=== PATIENT | female | born 1990 | race Two or more races ===

== ENCOUNTER → 2017-06-03 | Outpatient (CLI) | payer SELFPAY ==
--- NOTE | 2017-06-03 19:22 | RADIOLOGY REPORT (SQ) ---
EXAM DESCRIPTION: U/S OB 14+ TRNABD 1GES W/O DOP COMPLETED DATE/TIME: 06/03/2017 5:10 pm REASON FOR STUDY: ENCOUNTER FOR SUPERVISON OF OTHER NORMAL , SECOND TRIMESTER Z34.82 ENCOU NTER FOR SUPRVSN OF NORMAL , SECOND TRI COMPARISON: None. TECHNIQUE: Static and Dynamic grayscale imaging performed of gravid uterus using transabdominal appr oach. Additional selected color Doppler and spectral images recorded. All stored on PACS. LIMITATIONS: None. FINDINGS: EGA: 21 weeks 0 days JACQUELINE: 10/14/2017 EFW: 385 g +/-50 7 g PERCENTILE: Not recorded LVP: 6.1 cm PLACENTA: Posterior PRESENTATION: Vertex ANATOMY: HEART RATE: 143 beats per minute. FOUR CHAMBER HEART: Visualized. THREE VESSEL CORD: Yes. CORD INSERTION: Visualized. KIDNEYS AND BLADDER: Visualized. Appear normal. STOMACH: Visualized. Appears normal. SPINE: Spine not well visualized due to movement. But appears unremarkable BRAIN AND LATERAL VENTRICLES: Visualized. Appear normal. OTHER: No other significant finding. MATERNAL ADNEXA: Maternal ovaries not visualized. CERVICAL LENGTH: Not applicable. Greater than 20 weeks. Need transvaginal study if indicated. OTHER: No other significant finding. IMPRESSION: LIVING INTRAUTERINE . ESTIMATED GESTATIONAL AGE 21 weeks 0 days NO VISUALIZED ANOMALIES. Trimester of : Second trimester - 13 weeks 1 day to 27 weeks 6 days. TECHNICAL DOCUMENTATION: JOB ID: [id number] [employer]- All Rights Reserved
== END ==
LOC: RAD 15:19
PROVIDERS: ATTEND Nurse Practitioner Women's Health
DX: Z34.82 Encounter for supervision of other normal pregnancy, second trimester (principal)
CPT/HCPCS: 76805

== ENCOUNTER → 2017-07-14 | Outpatient (CLI) | payer SELFPAY ==
--- NOTE | 2017-07-15 10:16 | RADIOLOGY REPORT (SQ) ---
EXAM DESCRIPTION: U/S OB 14+ TRNABD 1GES W/O DOP COMPLETED DATE/TIME: 07/14/2017 4:41 pm REASON FOR STUDY: 2ND TRIMESTER ANATOMY SCAN Z34.82 ENCOUNTER FOR SUPRVSN OF NORMAL , SECO ND TRI COMPARISON: 06/03/2017 TECHNIQUE: Limited TRANSABDOMINAL AND ENDOVAGINAL grayscale ultrasound for evaluation of specific re quested obstetrical parameters. LIMITATIONS: None. FINDINGS: CERVICAL LENGTH: 4.8 cm Closed. RADHA: Largest pocket 6.5 cm cm. FHR: 152 beats per minute. PRESENTATION: Breech. OTHER: Imaging of the spine is unremarkable. IMPRESSION: LIMITED OBSTETRICAL ULTRASOUND WITH MEASURED PARAMETERS DELINEATED ABOVE. Trimester of : Third trimester - 28 weeks to delivery. TECHNICAL DOCUMENTATION: JOB ID: [id number] [employer]- All Rights Reserved
== END ==
LOC: WI 15:46
PROVIDERS: ATTEND Nurse Practitioner Women's Health
DX: Z34.82 Encounter for supervision of other normal pregnancy, second trimester (principal)
CPT/HCPCS: 76805

== ENCOUNTER 2017-08-04 15:47 | Outpatient (CLI) | payer MEDICAID ==
[2017-08-04 16:28] LABS: ABSOLUTE EOSINOPHILS # (AUTO) 0.1 10^3/uL (0.0-0.6); ABSOLUTE LYMPHOCYTES (AUTO) 1.7 10^3/uL (0.5-4.7); ABSOLUTE MONOCYTES (AUTO) 0.8 10^3/uL (0.1-1.4); ABSOLUTE NEUT (AUTO) 7.4 10^3/uL (1.7-8.2); BASOPHILS % (AUTO) 0.4 % (0-2); EOSINOPHILS % (AUTO) 1.5 % (0-6); HEMATOCRIT 35.5 % (36.0-47.0); HEMOGLOBIN 12.9 g/dL (12.0-15.5); HGB HCT DIFFERENCE 3.2; LYMPHOCYTES % (AUTO) 16.9 % (13-45); MEAN CORPUSCULAR HEMOGLOBIN 33.1 pg (27.0-33.4); MEAN CORPUSCULAR HGB CONC 36.3 g/dL (32.0-36.0); MEAN CORPUSCULAR VOLUME 91 fl (80-97); MONOCYTES % (AUTO) 7.7 % (3-13); RED BLOOD COUNT 3.89 10^6/uL (3.72-5.28); RED CELL DISTRIBUTION WIDTH 13.3 % (11.5-14.0); SEGMENTED NEUTROPHILS % (AUTO) 73.5 % (42-78)
[2017-08-04 16:35] LABS: APPEARANCE,URINE SLIGHTLY-CLOUDY; BILIRUBIN,URINE NEGATIVE (NEGATIVE); GLUCOSE, URINE NEGATIVE (NEGATIVE); KETONES,URINE NEGATIVE (NEGATIVE); LEUKOCYTE ESTERASE,URINE NEGATIVE (NEGATIVE); NITRITE,URINE NEGATIVE (NEGATIVE); PROTEIN,URINE NEGATIVE (NEGATIVE); URINE SPECIFIC GRAVITY 1.005; UROBILINOGEN,URINE NEGATIVE mg/dL (<2.0)
[2017-08-04 17:21] LABS: URINE BARBITURATES SCREEN NEGATIVE; URINE METHADONE SCREEN NEGATIVE; URINE OPIATES LOW NEGATIVE; URINE PHENCYCLIDINE SCREEN NEGATIVE
== END 2017-08-04 16:51 | disposition home or self-care (01) ==
LOC: LC 15:47
PROVIDERS: ATTEND Obstetrics & Gynecology
PROC: 4A1HXCZ Monitoring of Products of Conception, Cardiac Rate, External Approach (ICD-10-PCS; principal; 2017-08-04)
DX: O47.03 False labor before 37 completed weeks of gestation, third trimester (principal); Z3A.29 29 weeks gestation of pregnancy
CPT/HCPCS: 36415; 80307; 81001; 85025

== ENCOUNTER 2017-10-05 15:50 | Outpatient (CLI) | payer MEDICAID | END 2017-10-05 16:39 | disposition home or self-care (01) | LOC: LC 15:50 | PROVIDERS: ATTEND Advanced Practice Midwife | DX: Z34.83 Encounter for supervision of other normal pregnancy, third trimester (principal); Z3A.37 37 weeks gestation of pregnancy | CPT/HCPCS: 59025 ==

== ENCOUNTER 2017-10-08 07:40 | Outpatient (CLI) | payer MEDICAID ==
[2017-10-08 08:16] LABS: APPEARANCE,URINE SLIGHTLY-CLOUDY; BILIRUBIN,URINE NEGATIVE (NEGATIVE); GLUCOSE, URINE NEGATIVE (NEGATIVE); KETONES,URINE NEGATIVE (NEGATIVE); LEUKOCYTE ESTERASE,URINE NEGATIVE (NEGATIVE); NITRITE,URINE NEGATIVE (NEGATIVE); PROTEIN,URINE 100 mg/dL (NEGATIVE); URINE SPECIFIC GRAVITY 1.015; UROBILINOGEN,URINE NEGATIVE mg/dL (<2.0)
[2017-10-08 08:33] LABS: URINE BARBITURATES SCREEN NEGATIVE; URINE METHADONE SCREEN NEGATIVE; URINE OPIATES LOW NEGATIVE; URINE PHENCYCLIDINE SCREEN NEGATIVE
--- NOTE | 2017-10-08 08:48 | Non Stress Test Report ---
Non Stress Test Datetime Report Generated by CPN: 10/08/2017 08:47 DEMOGRAPHIC EGA NST: 38.2 INDICATION Indication for Study: Other Indication for Study (NST) Other: labor check MONITORING Monitor Explained: Monitor Explained; Test Explained; Patient Verbalized Understanding Time on Monitor: 10/08/2017 07:52 Time off Monitor: 10/08/2017 08:41 NST Duration: 49 NST INTERVENTIONS NST Interventions: PO Hydration Physician Notified NST: Dr.Teixeira BABY A: [id number] BABY A Movement : Present Contraction Frequency : 1-5 FHR Baseline : 125 Accelerations : 15X15 Decelerations : None Variability : Moderate 6-25bpm NST Review: Meets Criteria for Reactive NST NST Review and Verified By : Medardo Bañuelos RN NST Results: Reactive NST REPORT Report Trigger: Send Report
[2017-10-08] MEDS ORDERED: RINGERS SOLUTION,LACTATED 1,000 ML IV ONE (23:25)
== END 2017-10-08 08:48 | disposition home or self-care (01) ==
LOC: LC 07:40
PROVIDERS: ATTEND Obstetrics & Gynecology
PROC: 4A1HXCZ Monitoring of Products of Conception, Cardiac Rate, External Approach (ICD-10-PCS; principal; 2017-10-08)
DX: O47.1 False labor at or after 37 completed weeks of gestation (principal); Z3A.38 38 weeks gestation of pregnancy
CPT/HCPCS: 59025; 80307; 81005

== ENCOUNTER 2017-10-08 22:41 | Inpatient (IN) | payer MEDICAID ==
[2017-10-08 23:53] LABS: ABSOLUTE MONOCYTES (AUTO) 0.6 10^3/uL (0.1-1.4); ABSOLUTE NEUT (AUTO) 9.6 10^3/uL (1.7-8.2); BASOPHILS % (AUTO) 0.2 % (0-2); EOSINOPHILS % (AUTO) 0.1 % (0-6); HEMOGLOBIN 12.6 g/dL (12.0-15.5); HGB HCT DIFFERENCE 1.8; LYMPHOCYTES % (AUTO) 9.2 % (13-45); MEAN CORPUSCULAR HEMOGLOBIN 30.4 pg (27.0-33.4); MEAN CORPUSCULAR HGB CONC 34.9 g/dL (32.0-36.0); MEAN CORPUSCULAR VOLUME 87 fl (80-97); MONOCYTES % (AUTO) 5.7 % (3-13); RED BLOOD COUNT 4.13 10^6/uL (3.72-5.28); RED CELL DISTRIBUTION WIDTH 14.4 % (11.5-14.0); SEGMENTED NEUTROPHILS % (AUTO) 84.8 % (42-78); WHITE BLOOD COUNT 11.3 10^3/uL (4.0-10.5)
[2017-10-09] MEDS ORDERED: FENTANYL CITRATE INJ/PF 100 MCG/2 ML AMPUL ONE (00:16)
[2017-10-09] MEDS ORDERED: PHENYLEPHRINE HCL INJ/PF 10 MG/1 ML SDV ONE (00:16)
[2017-10-09] MEDS ORDERED: EPHEDRINE SULFATE INJ 50 MG/1 ML AMPULE ONE (00:16)
[2017-10-09] MEDS ORDERED: FENTANYL/BUPIVACAINE/NS/PF 0 MCG/0 ML RTUINJ EPI ONE (00:17)
[2017-10-09] MEDS ORDERED: BUPIVACAINE HCL 0.25 % INJ/PF (2.5 MG/1 ML) 30 ML VIAL ONE ×2 (00:17→01:08)
[2017-10-09] MEDS ORDERED: MISOPROSTOL 0.2 MG TABLET ONE ×2 (00:18)
[2017-10-09] MEDS ORDERED: LIDOCAINE 1% INJ-PF (10 MG/ML) 30 ML SDV ONE (00:18)
[2017-10-09] MEDS ORDERED: OXYTOCIN/NORMAL SALINE 20 UNIT/1,000 ML RTUINJ ONE (00:19)
[2017-10-09] MEDS ORDERED: FENTANYL/BUPIVACAINE/NS/PF 200 MCG/100 ML RTUINJ EPI ONE (11:06)
[2017-10-09] MEDS ORDERED: MAGNESIUM HYDROXIDE SUSP 30 ML UDCUP PO PRN (12:35)
[2017-10-09] MEDS ORDERED: PROMETHAZINE HCL 25 MG TABLET PO PRN (12:35)
[2017-10-09] MEDS ORDERED: DIPH/PERTUSS(ACELL)/TETANUS VAC/PF 0.5 ML SYR (>=10YO) IM PRN (12:35)
[2017-10-09] MEDS ORDERED: OXYTOCIN/NORMAL SALINE 20 UNIT/1,000 ML RTUINJ IV PRN (12:35)
[2017-10-09] MEDS ORDERED: ZOLPIDEM TARTRATE 5 MG TABLET PO PRN (12:35)
[2017-10-09] MEDS ORDERED: DIPHENHYDRAMINE HCL 25 MG CAPSULE PO PRN (12:35)
[2017-10-09] MEDS ORDERED: PROMETHAZINE HCL INJ 25 MG/1 ML VIAL IV PRN (12:35)
[2017-10-09] MEDS ORDERED: BENZOCAINE/MENTHOL AEROSOL SPRAY 56 ML TOP PRN (12:35)
[2017-10-09] MEDS ORDERED: DIBUCAINE 1% OINTMENT 28 GM TP PRN (12:35)
[2017-10-09] MEDS ORDERED: GLYCERIN/WITCH HAZEL LEAF 1 EACH MED..PAD TP PRN (12:35)
[2017-10-09] MEDS ORDERED: PROMETHAZINE HCL 25 MG SUPP.RECT PR PRN (12:35)
[2017-10-09] MEDS ORDERED: ACETAMINOPHEN 650 MG SUPP.RECT PR PRN (12:35)
[2017-10-09] MEDS ORDERED: MEASLES,MUMPS&RUBELLA VACC/PF 0.5 ML VIAL SUBCUT PRN (12:35)
[2017-10-09] MEDS ORDERED: NA PHOS,M-B/NA PHOS,DI-BA (ADULT) 133 ML ENEMA PR PRN (12:35)
[2017-10-09] MEDS ORDERED: PSEUDOEPHEDRINE HCL 30 MG TABLET PO PRN (12:35)
[2017-10-09] MEDS ORDERED: ACETAMINOPHEN WITH CODEINE #3 TABLET PO PRN ×2 (12:35)
[2017-10-09] MEDS ORDERED: IBUPROFEN 800 MG TABLET ONE (12:55)
[2017-10-09] MEDS: IBUPROFEN 800 MG TABLET PO SCH ×2 (12:59→22:34)
--- NOTE | 2017-10-09 13:42 | Delivery Summary ---
Del Sum A-C Datetime Report Generated by CPN: 10/09/2017 13:42 DELIVERY PERSONNEL DELIVERY PERSONNEL: [id number] Delivery Doctor:: Janet Teixeira MD Labor and Delivery Nurse:: Marni Ellis RNhead well puller Nurse:: Isela Bañuelos RN Physical Sciences Professor/ORGAN PIPE FINISHER: Johanne Montesinosa, ST MATERNAL INFORMATION Delivery Anesthesia: Epidural Medications After Delivery: Pitocin Bolus-Please Comment; Pitocin Drip 20 Units/1000ml NSS Estimated Blood Loss (ml): 150 Maternal Complications: None Provider Comments: Pt tolerated the procedure. was first skin to skin with mom after drying off, then skin to skin with FOB. LABOR SUMMARY EDC: 10/20/2017 00:00 No. Babies in Womb: 1 Attempted: No Labor Anesthesia: Epidural LABOR INFORMATION Reason for Induction: Not Applicable Onset of Labor: 10/08/2017 23:00 Complete Dilatation: 10/09/2017 11:06 Oxytocin: N/A Group B Beta Strep: Negative Antibiotics # of Doses: 0 Steroids Given: None Reason Steroids Not Administered: Not Applicable MEMBRANES Membranes Rupture Method: Spontaneous Rupture of Membranes: 10/08/2017 23:00 Length of Rupture (hr): 13.07 Amniotic Fluid Color: Clear Amniotic Fluid Amount: Moderate Amniotic Fluid Odor: Normal STAGES OF LABOR Stage 1 hr: 12 Stage 1 min: 6 Stage 2 hr: 0 Stage 2 min: 58 Stage 3 hr: 0 Stage 3 min: 6 Total Time in Labor hr: 13 Total Time in Labor min: 10 VAGINAL DELIVERY Episiotomy: None Laceration #1: None Laceration Extension #1: N/A Laceration Repair: Not Applicable Laceration Repair Note: Periclitoral abrasion made hemostatic with pressure. Vaginal laceration at posterior forchette was hemostatic Sponge Count Correct: N/A Sharps Count Correct: Yes CSECTION DELIVERY Primary Indication: N/A Secondary Indication: N/A CSection Incidence: N/A Labor: N/A Elective: N/A CSection Incision: N/A BABY A INFORMATION Delivery Date/Time: 10/09/2017 12:04 Method of Delivery: Vaginal Born in Route : No : N/A Forceps: N/A Vacuum Extraction: N/A Shoulder Dystocia : No PRESENTATION/POSITION BABY A Presentation: Cephalic Cephalic Presentation: Vertex Vertex Position: Right Occipital Anterior Breech Presentation: N/A PLACENTA INFORMATION BABY A Placenta Delivery Time : 10/09/2017 12:10 Placenta Method of Delivery: Spontaneous Placenta Status: Delivered SCORES BABY A Heart Rate 1 min: >100 bpm Resp Effort 1 min: Good Cry Reflex Irritability 1 min: Cough or Sneeze or Pulls Away Muscle Tone 1 min: Active Motion Color 1 min: Blue/Pale Resuscitation Effort 1 min: Tactile Stimulation SCORE 1 MIN: 8 Heart Rate 5 min: >100 bpm Resp Effort 5 min: Good Cry Reflex Irritability 5 min: Cough or Sneeze or Pulls Away Muscle Tone 5 min: Active Motion Color 5 min: Body Torboy, Extremities Blue Resuscitation Effort 5 min: Tactile Stimulation SCORE 5 MIN: 9 INFORMATION BABY A Gestational Age at Delivery: 38.3 Gestational Status: Early Term- 37- 38.6 Weeks Infant Outcome : Liveborn Condition : Stable Infant Sex: Male IDENTIFICATION BABY A Verification Date/Time: 10/09/2017 12:43 ID Band Number: [id number] Mother's Name Verified: Yes Infant RN Verifying Infant: NDoyle RN Additional Verifying Personnel: AMurphy RN WEIGHT/LENGTH BABY A Birthweight (gm): 3380 Weight (lb): 7 Weight (oz): 7 Infant Length (in): 21.00 Length (cm): 53.34 CORD INFORMATION BABY A No. Cord Vessels: 3 Nuchal Cord : N/A Cord Blood Taken: Yes-For Storage (Mom's Blood type +) Suction: Mouth; Nose ASSESSMENT BABY A Infant Complications: None Physical Findings at Delivery: Molding of the Head Infant Respirations: Appears Normal Skin to Skin: Yes Correctional Treatment Specialist/ALS Called : No Care By: Tony Bañuelos RN Transferred To: Remains with Mother BABY B INFORMATION : N/A SIGNATURES Signature: with User ID: [email or web address]
--- NOTE | 2017-10-09 14:20 | Admission Physical ---
Datetime Report Generated by CPN: 10/09/2017 14:20 CURRENT ADMISSION Chief Complaint: Uterine Contractions; Suspected Ruptured Membranes Chief Complaint Other: Active labor Indication for Induction: Term, Intrauterine ; Active Labor; Ruptured Membranes Admit Plan: Admit to Unit; Initiate Labor Protocol ALLERGIES Medication Allergies: No Medication Allergies: No Known Allergies (10/09/2017) Medication Allergies: No Known Allergies (10/08/2017) Medication Allergies: No Known Allergies (09/16/2017) Medication Allergies: No Known Allergies (08/04/2017) Medication Allergies: n/a Latex: No Latex Allergies Food Allergies: n/a Environmental Allergies: n/a OBSTETRICAL HISTORY EDC: 10/20/2017 00:00 : 1 Para: 0 Term: 0 : 0 SAB: 0 IAB: 0 Ectopic: 0 Livin Cesareans: 0 VBACs: 0 Multiple Births: 0 Gestational Diabetes: No Rh Sensitization: No Incompetent Cervix: No COLT: No Infertility: No ART Treatment: No Uterine Anomaly: No IUGR: No Hx Previous C/S: No Macrosomia: No Hx Loss/Stillborn: No PIH: No Hx : No Placenta Previa/Abruption: No Depression/PP Depression: No PTL/PROM: No Post Hemorrhage: No Current Procedures: Ultrasound; NST Obstetrical History Comments: G1 - Current SEE RECORDS Alcohol: No Marijuana : No Cocaine: No Other Illicit Drugs: No Cigarettes: Never Smoker. 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 Surgery: No Heart Disease: No Hosp/Surgery: No Autoimmune Disorder: No Anesthetic Complications: No Kidney Disease: No Abnormal Pap Smear: Yes Neuro/Epilepsy: No Psychiatric Disorders: No Other Medical Diseases: No Hepatitis/Liver Disease: No Significant Family History: No Varicosities/Phlebitis: No Trauma/Violence : No Thyroid Dysfunction: No Medical History Comments: abn pap with LEEP 2007 INFECTIOUS HISTORY Gonorrhea: No Genital Herpes: No Chlamydia: No Tuberculosis: No Syphilis: No Hepatitis: No HIV/AIDS Exposure: No Rash or Viral Illness: No HPV: No PHYSICAL EXAM General: Normal HEENT: Normal Neurologic: Normal Thyroid: Deferred Heart: Normal Lungs: Normal Breast: Deferred Back: Deferred Abdomen: Normal Genitourinary Exam: Normal Extremities: Normal DTRs: Deferred Pelvic Type: Adequate Physical Exam Comments: Abdomen: Gravid and NT Vital Signs: Reviewed; Within Normal Limits VAGINAL EXAM Dilatation: 5 Effacement: 90 Station: 0 Contraction Comments: 2-3 MEMBRANES Pooling: Positive Membranes: Ruptured Amniotic Fluid Color: Clear FETUS A EGA: 38.3 Monitoring: External US FHR- Baseline: 140s Variability: Moderate 6-25bpm Accelerations: 15X15 Decelerations: None FHR Category: Category I FHR Comments: Reasurring status at admission Estimated Weight (gm): 3200g Presentation: Vertex Admit Comment: presented to L_D with complaints of painful contractions. Pt has been in 2 times earlier with complaints of contractions. Pt reports good fm, no jesse vaginal bleeding and LOF occured on presentation to L_D. Pt denies any problems with this . Pt has been undergoing NST but does not understand why. Pt states her son has been very active this . Introduced myself to patient and family and offered if the were lingering questions to be answered. plan reviewed. PLANS FOR LABOR AND DELIVERY Labor and Delivery: Plan Pain Management: Natural Feeding Preference: Breast Benefit of Breast Feed Discussed: Yes Circumcision: Yes INFORMED CONSENT Signature: with User ID: [email or web address]
[2017-10-09] MEDS: DOCUSATE SODIUM 100 MG CAPSULE PO SCH (18:10)
[2017-10-09] MEDS: FERROUS SULFATE 325 MG TABLET PO SCH (18:10)
[2017-10-09] MEDS: FAMOTIDINE 20 MG TABLET PO SCH (22:33)
[2017-10-10] MEDS: IBUPROFEN 800 MG TABLET PO SCH ×3 (05:36→22:11)
[2017-10-10 07:57] LABS: HEMOGLOBIN 10.7 g/dL (12.0-15.5); HGB HCT DIFFERENCE 1.1; MEAN CORPUSCULAR HEMOGLOBIN 30.6 pg (27.0-33.4); MEAN CORPUSCULAR HGB CONC 34.4 g/dL (32.0-36.0); MEAN CORPUSCULAR VOLUME 89 fl (80-97); RED BLOOD COUNT 3.49 10^6/uL (3.72-5.28); RED CELL DISTRIBUTION WIDTH 14.6 % (11.5-14.0); WHITE BLOOD COUNT 16.4 10^3/uL (4.0-10.5)
--- NOTE | 2017-10-10 09:11 | PDOC PROGRESS REPORT ---
Subjective-OB Subjective: Post Delivery Day: 27 year old. Denies any needs at this time Doing well, no c/o, desires circumcision, breast feeding, voiding, ambulating Physical Exam (OB) Vital Signs: Temp Pulse Resp BP Pulse Ox 97.8 F 71 17 112/78 97 10/10/17 07:50 10/10/17 07:50 10/10/17 07:50 10/10/17 07:50 10/10/17 07:50 Intake & Output 10/09/17 10/10/17 10/11/17 06:59 06:59 06:59 Intake Total 100 Balance 100 Weight 68.55 kg - PIH/Pre-Eclampsia DTR's: 1 + Clonus: Negative Headache: Absent Epigastric Pain: No Visual Changes: No - Lochia Lochia Amount: Scant < 10 ml Lochia Color: Rubra/Red - Abdomen Description: Soft Hernia Present: No Fundal Description: Firm, Midline Fundal Height: u/u - u/2 Objective-Diagnostic Laboratory: 10/10/17 07:45 10/10/17 07:45 WBC 16.4 H RBC 3.49 L Hgb 10.7 L Hct 31.0 L MCV 89 MCH 30.6 MCHC 34.4 RDW 14.6 H Plt Count 161 Assessment and Plan(PN) - Assessment and Plan (1) Anemia Qualifiers: Anemia type: iron deficiency Is this a current diagnosis for this admission?: Yes (2) Normal vaginal delivery Is this a current diagnosis for this admission?: Yes - Time Spent with Patient Time with patient: Less than 15 minutes Medications reviewed and adjusted accordingly: Yes - Disposition Anticipated Discharge: Home Within: within 24 hours
[2017-10-10] MEDS: DOCUSATE SODIUM 100 MG CAPSULE PO SCH ×2 (09:18→18:16)
[2017-10-10] MEDS: FERROUS SULFATE 325 MG TABLET PO SCH ×2 (09:18→18:16)
[2017-10-10] MEDS: PRENATAL VITAMIN W DHA CAPSULE PO SCH (09:18)
[2017-10-10] MEDS: SENNOSIDES/DOCUSATE 8.6-50 MG 1 EACH TABLET PO SCH (09:18)
[2017-10-10] MEDS: FAMOTIDINE 20 MG TABLET PO SCH ×2 (09:19→22:11)
[2017-10-11] MEDS: IBUPROFEN 800 MG TABLET PO SCH ×2 (06:31→14:52)
[2017-10-11 09:16] VITALS: BP 109/63
[2017-10-11] MEDS: DOCUSATE SODIUM 100 MG CAPSULE PO SCH ×2 (10:03→17:03)
[2017-10-11] MEDS: PRENATAL VITAMIN W DHA CAPSULE PO SCH (10:03)
[2017-10-11] MEDS: FERROUS SULFATE 325 MG TABLET PO SCH ×2 (10:03→17:03)
[2017-10-11] MEDS: FAMOTIDINE 20 MG TABLET PO SCH (10:03)
[2017-10-11] MEDS: SENNOSIDES/DOCUSATE 8.6-50 MG 1 EACH TABLET PO SCH (10:03)
--- NOTE | 2017-10-11 10:08 | PDOC PROGRESS REPORT ---
Subjective-OB Subjective: Post Delivery Day: 27 year old. Denies any needs at this time Doing well, no c/o, voiding, ambulating, scant lochia, Physical Exam (OB) Vital Signs: Temp Pulse Resp BP Pulse Ox 98.2 F 82 16 109/63 97 10/11/17 09:45 10/11/17 09:45 10/11/17 09:45 10/11/17 08:41 10/11/17 09:45 Intake & Output 10/10/17 10/11/17 10/12/17 06:59 06:59 06:59 Intake Total 100 Balance 100 Weight 68.55 kg - PIH/Pre-Eclampsia DTR's: 1 + Clonus: Negative Headache: Absent Epigastric Pain: No Visual Changes: No - Lochia Lochia Amount: Scant < 10 ml Lochia Color: Rubra/Red - Abdomen Description: Tender, Soft, Flat Hernia Present: No Fundal Description: Firm, Midline Fundal Height: u/u - u/2 Objective-Diagnostic Laboratory: 10/10/17 07:45 Assessment and Plan(PN) - Assessment and Plan (1) Anemia Qualifiers: Anemia type: iron deficiency Is this a current diagnosis for this admission?: Yes (2) Normal vaginal delivery Is this a current diagnosis for this admission?: Yes - Time Spent with Patient Time with patient: Less than 15 minutes Medications reviewed and adjusted accordingly: Yes - Disposition Anticipated Discharge: Home Within: Other - today
--- NOTE | 2017-10-11 10:10 | PDOC DISCHARGE SUMMARY ---
Final Diagnosis Discharge Date: 10/11/17 - Final Diagnosis (1) Anemia Is this a current diagnosis for this admission?: Yes (2) Normal vaginal delivery Is this a current diagnosis for this admission?: Yes Discharge Data - Discharge Medication Home Medications: No122/Iron/Folic Acid [ Multi Tablet] 1 tab PO DAILY 08/04/17 Gestational Age: 38.3 Reason(s) for Admission: Onset of Labor Procedures: Ultrasound Intrapartum Procedure(s): Spontaneous Vaginal Delivery Complication(s): Laceration-Vaginal, Laceration-Periurethral Laceration-Degree: 1st - Data Baby 1 Male at 1 minute: 8 at 5 minutes: 9 Weight: 3.374 kg Home with Mother: Yes Complications: No - Diagnosis Test Laboratory: Temp Pulse Resp BP Pulse Ox 98.2 F 82 16 109/63 97 10/11/17 09:45 10/11/17 09:45 10/11/17 09:45 10/11/17 08:41 10/11/17 09:45 10/08/17 10/10/17 23:35 07:45 RBC 4.13 3.49 L Hgb 12.6 10.7 L Hct 36.0 31.0 L - Discharge information/Instructions Discharge Activity: Activity As Tolerated, No Lifting Over 10 Pounds, No Lifting /Push/Pulling, Pelvic Rest Discharge Diet: As Tolerated, Regular Disposition: HOME, SELF-CARE Follow up with: [facility] in: 4, Weeks
== END 2017-10-11 18:44 | disposition home or self-care (01) | DRG 775 ==
LOC: LC 22:41 → LR 22:56 → 2S 10-09 14:18
PROVIDERS: ADMIT Obstetrics & Gynecology; ATTEND Obstetrics & Gynecology
PROC: 10E0XZZ Delivery of Products of Conception, External Approach (ICD-10-PCS; principal; 2017-10-09)
PROC: 4A1HXCZ Monitoring of Products of Conception, Cardiac Rate, External Approach (ICD-10-PCS; 2017-10-09)
DX: O70.0 First degree perineal laceration during delivery (principal); O99.02 Anemia complicating childbirth; Z3A.38 38 weeks gestation of pregnancy; D50.9 Iron deficiency anemia, unspecified; Z37.0 Single live birth
CPT/HCPCS: 36415; 85025; 85027; 86592; 86850; 86900; 86901; 94760; J2370; J2590; J3010; J3490

== ENCOUNTER 2017-10-25 23:26 | Observation (INO) | payer MEDICAID ==
[2017-10-25] MEDS ORDERED: VANCOMYCIN HCL INJ 1000 MG VIAL IV ONE (23:44)
[2017-10-25] MEDS ORDERED: ACETAMINOPHEN 325 MG TABLET PO ONE (23:46)
[2017-10-25] MEDS ORDERED: NORMAL SALINE 1000 ML 1,000 ML IV ONE (23:46)
--- NOTE | 2017-10-25 23:53 | ER Document Report ---
ED General - General Chief Complaint: Breast Problem Stated Complaint: PAIN IN BREAST Time Seen by Provider: 10/25/17 23:38 Notes: Patient is a 27-year-old female presents with complaints of fever and breast pain. She is 2 weeks . Start noticing some pain in her breasts yesterday. She also felt feverish but did not check her temp until today. Temp today is 102.9 and therefore she came to the ER. No vomiting. She denies abnormal vaginal discharge but has had some continuous spotting since her normal vaginal delivery 2 weeks ago. She is breast-feeding. She says that she feels a firmness and pain to the right lower portion of her right breast. She says her left breast also is tender but not as much as her right side. She denies any redness or warmth to the breast. No abnormal discharge from the breasts. No other infectious type symptoms. No dysuria. No runny nose cough or congestion. No abdominal pain. No other complaints this time. TRAVEL OUTSIDE OF THE [place] IN LAST 30 DAYS: No - Related Data Allergies/Adverse Reactions: No Known Allergies Allergy (Verified 10/09/17 13:54) Past Medical History - Social History Smoking Status: Never Smoker Frequency of alcohol use: None Drug Abuse: None Family History: Reviewed & Not Pertinent Review of Systems - Review of Systems Notes: My Normal Review Basic REVIEW OF SYSTEMS: CONSTITUTIONAL : Fever EENT: Denies eye, ear, throat, or mouth pain or symptoms. Denies nasal or sinus congestion. Breasts: Breast pain RESPIRATORY: Denies cough, cold, or chest congestion. Denies shortness of breath, difficulty breathing, or wheezing. GASTROINTESTINAL: Denies abdominal pain. Denies nausea, vomiting, or diarrhea. Denies constipation. Last BM: GENITOURINARY: Denies difficulty urinating, painful urination, burning, frequency, or blood in urine. FEMALE GENITOURINARY: Denies vaginal bleeding, abnormal or irregular periods. MUSCULOSKELETAL: Denies neck or back pain or joint pain or swelling. SKIN: Denies rash or skin lesions. HEMATOLOGIC : Denies easy bruising or bleeding. LYMPHATIC: Denies swollen, enlarged glands. NEUROLOGICAL: Denies altered mental status or loss of consciousness. Denies headache. Denies weakness or paralysis or loss of use of either side. Denies problems with gait or speech. Denies sensory or motor loss. ALL OTHER SYSTEMS REVIEWED AND NEGATIVE. Physical Exam - Vital signs Vitals: Temp Pulse Resp BP Pulse Ox 102.6 F H 121 H 20 122/84 96 10/25/17 23:33 10/25/17 23:33 10/25/17 23:33 10/25/17 23:33 10/25/17 23:33 - Notes Notes: General Appearance: Well nourished, alert, cooperative, no acute distress, no obvious discomfort. Vitals: reviewed, See vital signs table. Head: no swelling or tenderness to the head Eyes: PERRL, EOMI, Conjuctiva clear Mouth: No decreasd moisture Throat: No tonsillar inflammation, No airway obstruction, No lymphadenopathy Ears: Normal-appearing tympanic membranes bilaterally. Neck: Supple, no neck tenderness Lungs: No wheezing, No rales, No rhonci, No accessory muscle use, good air exchange bilaterally. Heart: Tachycardic rate, Regular rythm, No murmur, no rub Breast: Patient's breasts are neither red or hot to touch; however, she has a lot of tenderness to palpation over the outer lower quadrant of the right breast as well as tenderness to palpation over the outer lower quadrant of the left breast. There is no abnormal discharge from breast this time. Abdomen: Normal BS, soft, No rigidity, No abdominal tenderness, No guarding, no rebound, no abdominal masses, no organomegaly Extremities: strength 5/5 in all extremities, good pulses in all extremities, no swelling or tenderness in the extremities, no edema. Skin: warm, dry, appropriate color, no rash Neuro: speech clear, oriented x 3, normal affect, responds appropriately to questions. Course - Re-evaluation Re-evalutation: 10/26/17 02:37 Patient's left breast ultrasound shows a complex cystic area measuring 2 cm in the 4 o'clock position of the left breast. This that this could be abscess versus seroma. Being that the patient has had increased pain and fevers we have to assume that this possibly could be abscess. I am having a difficult time palpating this exact area on exam to be able to aspirate it. I did speak with the surgeon, Dr. Brar, who said he will admit the patient and continue IV antibiotics and have the area aspirated tomorrow to see if this is indeed purulent and if so perform drainage. Patient does have some signs of urinary tract infection on urinalysis over the patient's has no urinary symptoms. This could be contaminant; however, being the patient does have fevers I will still cover her with antibiotics for the urine; however the main infection and most likely cause of fever still seems to most likely be from the breast. Did explain the situation to the patient. Patient's has going to get the breast pump from home so she can continue to pump her breasts. Patient and are agreeable with her being admitted to the hospital. Dictation of this chart was performed using voice recognition software; therefore, there may be some unintended grammatical errors. - Vital Signs Vital signs: Temp Pulse Resp BP Pulse Ox 99.3 F 121 H 13 104/74 95 10/26/17 01:50 10/25/17 23:33 10/26/17 01:14 10/26/17 01:46 10/26/17 01:46 - Laboratory Result Diagrams: 10/26/17 00:02 10/26/17 00:02 Laboratory results interpreted by me: 10/26/17 10/26/17 00:02 01:40 RDW 14.7 H Seg Neutrophils % 81.6 H Lymphocytes % 11.1 L Urine Protein 30 H Urine Blood LARGE H Ur Leukocyte Esterase MODERATE H Discharge - Discharge Clinical Impression: breast abscess vs. seroma, Pyuria, Mastitis Condition: Stable Disposition: ADMITTED OBSERVATION Admitting Provider: Surgicalist Referrals: SILVESTRE BELL MD [Primary Care Provider] - Follow up as needed
[2017-10-26 00:21] LABS: ABSOLUTE EOSINOPHILS # (AUTO) 0.1 10^3/uL (0.0-0.6); ABSOLUTE LYMPHOCYTES (AUTO) 0.8 10^3/uL (0.5-4.7); ABSOLUTE MONOCYTES (AUTO) 0.4 10^3/uL (0.1-1.4); ABSOLUTE NEUT (AUTO) 5.7 10^3/uL (1.7-8.2); BASOPHILS % (AUTO) 0.4 % (0-2); HEMATOCRIT 39.4 % (36.0-47.0); HEMOGLOBIN 13.7 g/dL (12.0-15.5); HGB HCT DIFFERENCE 1.7; LYMPHOCYTES % (AUTO) 11.1 % (13-45); MEAN CORPUSCULAR HEMOGLOBIN 30.1 pg (27.0-33.4); MEAN CORPUSCULAR HGB CONC 34.6 g/dL (32.0-36.0); MEAN CORPUSCULAR VOLUME 87 fl (80-97); MONOCYTES % (AUTO) 5.9 % (3-13); RED BLOOD COUNT 4.54 10^6/uL (3.72-5.28); RED CELL DISTRIBUTION WIDTH 14.7 % (11.5-14.0); SEGMENTED NEUTROPHILS % (AUTO) 81.6 % (42-78)
[2017-10-26 00:32] LABS: ALANINE AMINOTRANSFERASE 38 U/L (9-52); ALKALINE PHOSPHATASE 111 U/L (38-126); ANION GAP 13 (5-19); ASPARTATE AMINO TRANSFERASE 29 U/L (14-36); BILIRUBIN,DIRECT 0.4 mg/dL (0.0-0.4); BILIRUBIN,TOTAL 0.6 mg/dL (0.2-1.3); BLOOD UREA NITROGEN 19 mg/dL (7-20); CALCIUM 8.7 mg/dL (8.4-10.2); CARBON DIOXIDE 23 mmol/L (22-30); CHLORIDE 103 mmol/L (98-107); CREATININE RESULT 0.89 mg/dL (0.52-1.25); GLUCOSE 97 mg/dL (75-110); SODIUM 138.8 mmol/L (137-145); TOTAL PROTEIN 7.1 g/dL (6.3-8.2)
[2017-10-26 02:02] LABS: AMORPHOUS SEDIMENT,URINE TRACE /HPF; APPEARANCE,URINE SLIGHTLY-CLOUDY; BILIRUBIN,URINE NEGATIVE (NEGATIVE); GLUCOSE, URINE NEGATIVE (NEGATIVE); KETONES,URINE NEGATIVE (NEGATIVE); LEUKOCYTE ESTERASE,URINE MODERATE (NEGATIVE); NITRITE,URINE NEGATIVE (NEGATIVE); PROTEIN,URINE 30 mg/dL (NEGATIVE); URINE SPECIFIC GRAVITY 1.017; UROBILINOGEN,URINE NEGATIVE mg/dL (<2.0)
--- NOTE | 2017-10-26 02:16 | RADIOLOGY REPORT (SQ) ---
EXAM DESCRIPTION: U/S BREAST UNILATERAL LIMITED CLINICAL HISTORY: 27 years, Female, right breast rule out abscess COMPARISON: None. TECHNIQUE: LIMITATIONS: None. FINDINGS: Sonographic survey of the right breast in the area of indicated symptomatology in the 7:00 position including 1-4 cm from the nipple demonstrates prominent ducts with no evidence of abscess or fluid collection. No sonographic evidence of mass. IMPRESSION: No sonographic evidence of abscess or mass. A negative sonogram cannot exclude malignancy. Consider complete evaluation with diagnostic mammogram. Ultrasound BI-RADS: Zero 2010 [employer]- All Rights Reserved
[2017-10-26] MEDS ORDERED: CEFTRIAXONE INJ 1000 MG VIAL IV ONE (02:17)
--- NOTE | 2017-10-26 02:19 | RADIOLOGY REPORT (SQ) ---
EXAM DESCRIPTION: U/S NON OB PEL W/DOPPLER CLINICAL HISTORY: 27 years, Female, 2 week post fever COMPARISON: None. TECHNIQUE: Transabdominal LIMITATIONS: None. FINDINGS: 11.6 cm uterus, 0.4 cm thick endometrial stripe, and ovarian fossae appear unremarkable. Ovaries not directly visualized. No significant free fluid. IMPRESSION: Normal pelvic sonogram. Ovaries not directly visualized. 2011 [employer]- All Rights Reserved
--- NOTE | 2017-10-26 02:22 | RADIOLOGY REPORT (SQ) ---
EXAM DESCRIPTION: U/S BREAST UNILATERAL LIMITED CLINICAL HISTORY: 27 years, Female, left breast rule out abscess COMPARISON: None. LIMITATIONS: None. FINDINGS: Targeted sonogram in the 4:00 position of the left breast 5 cm from the nipple in an area of indicated symptomatology shows a 1.5 x 2.0 x 1.5 cm complex cystic mass with septation and questionable capsular vascularity. IMPRESSION: 2.0 cm complex cystic mass of the left breast. Differential diagnosis includes abscess, seroma, or other neoplasm. Correlation with diagnostic mammogram recommended. BI-RADS: Zero 2010 [employer]- All Rights Reserved
--- NOTE | 2017-10-26 03:44 | PDOC H&P ---
History of Present Illness Admission Date/PCP: 10/26/17 02:51 SILVESTRE BELL MD Patient complains of: fever History of Present Illness: PAOLA DELGADO is a 27 year old female 2 weeks post and beastfeeding noted bilateral breasts pains with fever yesterday at 12 noon and 8pm. Reported temp 102 degrees F. Came to ED at 11 pm and noted Temp 102. US pelvis normal. US left breast with a cystic mass 1.5x2.0x1.5 at 4 0'clock position. Past Medical History Medical History: None Past Surgical History Past Surgical History: Reports: None Social History Smoking Status: Never Smoker Frequency of Alcohol Use: None Hx Recreational Drug Use: No - Advance Directive Resuscitation Status: Full Code Family History Family History: Reviewed & Not Pertinent Parental Family History Reviewed: Yes - Both alive and well Children Family History Reviewed: No Sibling(s) Family History Reviewed.: No Medication/Allergy Home Medications: No122/Iron/Folic Acid [ Multi Tablet] 1 tab PO DAILY 08/04/17 Allergies/Adverse Reactions: No Known Allergies Allergy (Verified 10/09/17 13:54) Review of Systems Constitutional: PRESENT: fever(s) Eyes: PRESENT: other - no visual nor hearing problems Nose, Mouth, and Throat: PRESENT: other - no sore throat Cardiovascular: PRESENT: other - no chest pains Respiratory: PRESENT: other - no cough Gastrointestinal: PRESENT: other - No abd pains Genitourinary: PRESENT: other - no dysuria Musculoskeletal: PRESENT: other - no joint swelling Integumentary: PRESENT: other - pains rt breast Neurological: PRESENT: other - no seizures Psychiatric: PRESENT: other - no anxiety Endocrine: PRESENT: other - no polyuria/polydipsia Hematologic/Lymphatic: PRESENT: other - no easy bruisability Physical Exam Vital Signs: Temp Pulse Resp BP Pulse Ox 99.3 F 121 H 16 107/68 97 10/26/17 01:50 10/25/17 23:33 10/26/17 03:01 10/26/17 03:00 10/26/17 03:01 General appearance: PRESENT: no acute distress, well-developed, well-nourished Head exam: PRESENT: atraumatic Eye exam: PRESENT: conjunctiva pink Ear exam: PRESENT: normal external ear exam Mouth exam: PRESENT: moist, tongue midline Neck exam: PRESENT: full ROM Respiratory exam: PRESENT: clear to auscultation erinn Cardiovascular exam: PRESENT: RRR Pulses: PRESENT: normal radial pulses Vascular exam: PRESENT: normal capillary refill GI/Abdominal exam: PRESENT: soft - nontender Rectal exam: PRESENT: deferred Extremities exam: PRESENT: full ROM Musculoskeletal exam: PRESENT: full ROM Neurological exam: PRESENT: alert, oriented to person, oriented to place, oriented to time, oriented to situation Psychiatric exam: PRESENT: appropriate affect Skin exam: PRESENT: other - Both breasts full lactating. Redness rt lower outer quadrant but no discrete mass. US rt breast is negative. Left breast with tenderness around 4 0'clock position compatible with US finding of cystic lesion possible abscess. Results Impressions: Pelvis Ultrasound 10/25/17 23:43 IMPRESSION: Normal pelvic sonogram. Ovaries not directly visualized. 2010 [facility] [employer]- All Rights Reserved Assessment & Plan - Diagnosis (1) Left breast abscess Is this a current diagnosis for this admission?: Yes - Time Time Spent: 30 to 50 Minutes - Plan Summary Plan Summary: NPO,hydrate IV antibiotic Vanco Possible aspiration/I&D with US guidance in the OR. Will inform Dr Moyer
[2017-10-26] MEDS: NORMAL SALINE 1000 ML 1,000 ML IV PRN ×3 (04:24→20:34)
[2017-10-26] MEDS ORDERED: PROPOFOL INJ 200 MG/20 ML VIAL IV ONE (07:38)
[2017-10-26] MEDS ORDERED: MIDAZOLAM 2 MG/2 ML INJ ONE (07:38)
[2017-10-26] MEDS ORDERED: FENTANYL CITRATE INJ/PF 100 MCG/2 ML AMPUL ONE (07:38)
[2017-10-26] MEDS ORDERED: ACETAMINOPHEN 0 ML IV ONE (07:39)
[2017-10-26] MEDS ORDERED: BUPIVACAINE HCL 0.25 % INJ/PF (2.5 MG/1 ML) 30 ML VIAL ONE (07:42)
[2017-10-26] MEDS ORDERED: LIDOCAINE 0.5% INJ-PF (5 MG/ML) 50 ML SDV ONE (07:42)
[2017-10-26] MEDS ORDERED: LIDOCAINE 1% INJ-PF (10 MG/ML) 30 ML SDV ONE (10:30)
[2017-10-26] MEDS: GLUCAGON,HUMAN RECOMB 1 MG INJ SUBCUT PRN ×2 (12:34→12:36)
[2017-10-26] MEDS: DEXTROSE 50%-WATER 25 GM/50 ML DISP.SYRIN IV PRN ×4 (12:34→12:36)
[2017-10-26] MEDS: DEXTROSE 40% GEL 15 GM TUBE PO PRN ×4 (12:34→12:36)
--- NOTE | 2017-10-26 12:54 | PDOC PROGRESS REPORT ---
Subjective Progress Note for:: 10/26/17 Reason For Visit: BREAST ABSCESS Patient examined this morning. She states she feels better after intravenous Rocephin and vancomycin given. Physical Exam Vital Signs: Temp Pulse Resp BP Pulse Ox 98.2 F 84 16 103/78 99 10/26/17 08:36 10/26/17 08:36 10/26/17 08:36 10/26/17 08:36 10/26/17 08:36 General appearance: PRESENT: mild distress Skin exam: PRESENT: other - Breast examination with the patient in the semirecumbent position. Both breasts are engorged edematous with cellulitis involving bilateral areola; tender areas at the outer lower quadrants of both breasts. No visible abscess, or point tenderness. Results Impressions: Pelvis Ultrasound 10/25/17 23:43 IMPRESSION: Normal pelvic sonogram. Ovaries not directly visualized. 2011 [employer]- All Rights Reserved Assessment & Plan - Diagnosis (1) Mastitis Is this a current diagnosis for this admission?: Yes Plan: Bilateral mastitis with mastodynia, clinically improved on intravenous antibiotics. Plan: 1. We will review ultrasonography and likely perform bedside ultrasonography possible fine-needle aspiration. 2. Continue intravenous antibiotics. 3. We will feed patient.
--- NOTE | 2017-10-26 13:00 | Operative Report ---
Operative Report DATE OF SURGERY: 10/26/17 PREOPERATIVE DIAGNOSIS: Bilateral mastitis POSTOPERATIVE DIAGNOSIS: Name with extensive subcutaneous edema, dilated milk ducts, and bilateral fibrocystic disease; not rule out small intraparenchymal abscesses OPERATION: Bilateral breast ultrasonography SURGEON: SILVESTRE PERALES ANESTHESIA: Other - None TISSUE REMOVED OR ALTERED: None COMPLICATIONS: None ESTIMATED BLOOD LOSS: None INTRAOPERATIVE FINDINGS: See below PROCEDURE: Patient was scanned in the upright position with each arm at side were abducted 90. Left breast scanned initially with a variable frequency linear transducer. These were significant for extensive variable sized cysts in the upper outer quadrant of the left breast, largest no greater than 2 cm. In the left lower quadrant there is deep 1-1/2 cm diagonally oriented hypoechoic density consistent with cyst versus abscess. There is edema around the areola complex. There are multiple dilated mammary ducts. Right breast is scanned with similar findings; multiply cystic disease not as extensive; And the 8 o'clock position there is a 2 cm deep hypoechoic mass consistent with cyst versus abscess. Impression: Bilateral mastitis, severe, on the backdrop of fibrocystic disease; Cannot rule out small intraparenchymal abscesses. Recommendations: 1. Plan to the patient and her significant other the findings as described above. Although intraparenchymal abscesses may be present, they are less likely in this setting. Patient's inflammatory process is primarily superficial involving both breasts, especially the areola regions. 2. Furthermore draining these deep abscesses with a short 18-gauge needle at bedside using ultrasound guidance may be difficult 3. Suggest continue intravenous antibiotics, and clinically reassess next 12- 24 hours.
[2017-10-26] MEDS: IBUPROFEN 800 MG TABLET PO PRN ×2 (13:13→20:34)
[2017-10-26] MEDS: CEFTRIAXONE 1 GM/D5W RTU 1 GM/50 ML RTUPB IV SCH (17:30)
[2017-10-27] MEDS: CEFTRIAXONE 1 GM/D5W RTU 1 GM/50 ML RTUPB IV SCH (05:21)
[2017-10-27] MEDS: NORMAL SALINE 1000 ML 1,000 ML IV PRN (05:22)
--- NOTE | 2017-10-27 09:13 | DISCHARGE SUMMARY E ---
Discharge Summary NAME: PAOLA DELGADO : 1990 AGE: 27Y ADMITTED: 10/26/2017 DISCHARGED: 10/27/2017 FINAL DIAGNOSIS: Bilateral severe mastitis with fibrocystic disease, unable to rule out small intraparenchymal abscesses. HOSPITAL COURSE: Patient had fever the day before admission and also on the night of admission up to 102. Ultrasound of both breasts in the ED showed suspicious for abscess of the left breast. Patient is 2 weeks and lactating. *------* along both breasts, primarily along the right breast. Started right away on intravenous antibiotics. On 10/26/2017, an ultrasound of both breasts done by Dr. Moyer and unable to rule out small intraparenchymal abscesses, but had severe mastitis with backdrop of fibrocystic disease. On 10/27/2017, patient feels a lot better. Both breasts with no pain or tenderness. Afebrile. She was discharged home on p.o. Keflex for the next 5 days. Patient will be followed in the surgical clinic in 2 weeks. DICTATING PHYSICIAN: KAMALA HERBERT M.D. [id number] PHY#: [id number] ID: [id number] JOB#: [id number] ACCT: [id number] cc:Terrie HELTON M.D. [facility],
[2017-10-27 09:23] VITALS: BP 106/71
== END 2017-10-27 11:23 | disposition home or self-care (01) ==
LOC: ER 23:26 → EH 10-26 02:51 → 2S 10-26 04:46
PROVIDERS: ATTEND Surgery
PROC: BH42ZZZ Ultrasonography of Bilateral Breasts (ICD-10-PCS; principal; 2017-10-26)
DX: O91.22 Nonpurulent mastitis associated with the puerperium (principal); N60.12 Diffuse cystic mastopathy of left breast; N60.11 Diffuse cystic mastopathy of right breast; O99.89 Other specified diseases and conditions complicating pregnancy, childbirth and the puerperium; O86.20 Urinary tract infection following delivery, unspecified
CPT/HCPCS: 99285; 96365; 96366; 96367; 36415; 87086; 87210; 85025; 80053; 81001; 87491; 87591; 87804; 76856; 76642; 93976; G0378 ×2; J3490 ×2; J0696 ×3; J7030 ×2; J3370; J0131; J2250; J2704; J3010

== ENCOUNTER 2017-12-02 17:19 | Emergency (ER) | payer MEDICAID ==
[2017-12-02 17:31] VITALS: BP 110/50
[2017-12-02] MEDS ORDERED: DIPHENHYDRAMINE HCL 25 MG CAPSULE PO ONE (18:03)
[2017-12-02] MEDS ORDERED: PREDNISONE 20 MG TABLET PO ONE (18:03)
--- NOTE | 2017-12-02 18:06 | ER Document Report ---
ED Skin Rash/Insect Bite/Abscs - General Chief Complaint: Rash Stated Complaint: RASH Time Seen by Provider: 12/02/17 17:48 Mode of Arrival: Ambulatory Information source: Patient Notes: 27-year-old female presented ED for complaint of rash. She states she first noted the rash on . She said she had her follow-up with appointment with [facility] last week they gave her a cream which actually did not help and this rash spread and she saw the [facility] 2 days ago and they told her that she needed to follow-up with her primary doctor. October. She states after the baby was born she came in for mastitis and was in the hospital for 4 days. They noticed an abscess but did not do surgery treat her and with antibiotics. States when she went to her follow-up appointment the nurse noticed the rash and told her to follow-up with her [facility] at her six-week appointment. She states she has not established with a primary doctor as yet so she came to the emergency room. TRAVEL OUTSIDE OF THE [place] IN LAST 30 DAYS: No - HPI Patient complains to provider of: Skin rash/lesion Onset: Other - Since November 06 Onset/Duration: Gradual, Worse Quality of pain: Burning - And itching Severity: Moderate Pain Level: 3 Skin Character: Erythema, Rash Quality of rash: Itchy, Burning Identify cause: No Exacerbated by: Denies Relieved by: Denies Similar symptoms previously: Yes Recently seen / treated by doctor: Yes - Related Data Allergies/Adverse Reactions: No Known Allergies Allergy (Verified 12/02/17 17:25) Past Medical History - General Information source: Patient - Social History Smoking Status: Never Smoker Cigarette use (# per day): No Chew tobacco use (# tins/day): No Smoking Education Provided: No Frequency of alcohol use: None Drug Abuse: None Occupation: None Lives with: Family Family History: Reviewed & Not Pertinent Patient has suicidal ideation: No Patient has homicidal ideation: No - Past Medical History Cardiac Medical History: Reports: None Pulmonary Medical History: Reports: None EENT Medical History: Reports: None Neurological Medical History: Reports: None Endocrine Medical History: Reports: None Renal/ Medical History: Reports: None, Other - Mastitis Malignancy Medical History: Reports: None GI Medical History: Reports: None Musculoskeltal Medical History: Reports None Skin Medical History: Reports Hx Cellulitis - Mastitis Psychiatric Medical History: Reports: None Traumatic Medical History: Reports: None Infectious Medical History: Reports: None Surgical Hx: Negative Past Surgical History: Reports: None - Immunizations Immunizations up to date: Yes Hx Diphtheria, Pertussis, Tetanus Vaccination: Yes Review of Systems - Review of Systems Constitutional: No symptoms reported EENT: No symptoms reported Cardiovascular: No symptoms reported Respiratory: No symptoms reported Gastrointestinal: No symptoms reported Genitourinary: No symptoms reported Female Genitourinary: No symptoms reported Musculoskeletal: No symptoms reported Skin: Rash - Generalized fine red Hematologic/Lymphatic: No symptoms reported Neurological/Psychological: No symptoms reported Physical Exam - Vital signs Vitals: Temp Pulse Resp BP Pulse Ox 98.5 F 65 13 110/50 L 97 12/02/17 17:30 12/02/17 17:30 12/02/17 17:30 12/02/17 17:30 12/02/17 17:30 Interpretation: Normal - General General appearance: Appears well, Alert - HEENT Head: Normocephalic, Atraumatic Eyes: Normal Pupils: PERRL - Respiratory Respiratory status: No respiratory distress Chest status: Nontender Breath sounds: Normal Chest palpation: Normal - Cardiovascular Rhythm: Regular Heart sounds: Normal auscultation Murmur: No - Abdominal Inspection: Normal Distension: No distension Bowel sounds: Normal Tenderness: Nontender Organomegaly: No organomegaly - Back Back: Normal, Nontender - Extremities General upper extremity: Normal inspection, Nontender, Normal color, Normal ROM , Normal temperature General lower extremity: Normal inspection, Nontender, Normal color, Normal ROM , Normal temperature, Normal weight bearing. No: Camelia's sign - Neurological Neuro grossly intact: Yes Cognition: Normal Orientation: AAOx4 Good Coma Scale Eye Opening: Spontaneous Equality Coma Scale Verbal: Oriented Good Coma Scale Motor: Obeys Commands Equality Coma Scale Total: 15 Speech: Normal Motor strength normal: LUE, RUE, LLE, RLE Sensory: Normal - Psychological Associated symptoms: Normal affect, Normal mood - Skin Skin Temperature: Warm Skin Moisture: Dry Skin Color: Normal Location of irregularity: Generalized Character of irregularity: Maculopapular, Fine, Patchy, Erythematous Course - Re-evaluation Re-evalutation: 12/02/17 18:12 Patient treated with Benadryl and prednisone and instructed to follow-up with her primary doctor. Patient to return to the ED if she has not established a primary doctor if she develops any increase in symptoms. - Vital Signs Vital signs: Temp Pulse Resp BP Pulse Ox 98.5 F 65 13 110/50 L 97 12/02/17 17:30 12/02/17 17:30 12/02/17 17:30 12/02/17 17:30 12/02/17 17:30 Discharge - Discharge Clinical Impression: Rash Condition: Stable Disposition: HOME, SELF-CARE Additional Instructions: ACUTE ALLERGIC REACTION: Your symptoms are due to an allergic reaction. Allergy can cause hives, swelling of the hands, feet, and face, hoarseness, and difficulty swallowing or breathing. It may be due to exposure to medication, animal dander, foods, infection, or insect bites. Medication is a common cause, even when prior use of this same medication caused no problems. Acute treatment may include adrenalin and antihistamines. Usually, the specific allergic agent can't be identified unless repeated episodes occur. Home treatment includes the following: (1) Stop any suspicious medications. This will be discussed with you. (2) Oral antihistamines for the next four to five days. Example, diphenhydramine (Benadryl) every four hours. (3) You may also use cimetidine (Tagamet), ranitidine (Zantac), or famotidine ( Pepcid) every four hours if diphenhydramine is not controlling itching and hives. (4) Avoid aspirin until the hives completely disappear. (5) Avoid hot baths or showers until the hives are completely gone. Call the doctor if faintness, difficulty swallowing, tightness in the chest , or wheezing occurs. STEROID MEDICATION: You have been given a medicine of the cortisone/steroid class. This medication is used to control inflammation or allergy. It is usually only given for a short period of time, until the acute process subsides. There are usually no side effects from short-term use of cortisone-like medications. Some persons feel an increased sense of well-being and are not sleepy at bedtime. Long-term use of cortisone medications is best avoided, unless required for a severe condition. If your condition does not remit, or relapses after the course of corticosteroid medication, you should consult your physician. USE OF DIPHENHYDRAMINE: The use of diphenhydramine (Benadryl) has been recommended to control allergic symptoms. The 25 mg strength is available over- the-counter, as well as the elixir. This antihistamine is used for many symptoms. It's useful for itching, watering eyes and nose, allergic swelling, hives, and insect stings. The medication can be repeated four times daily. Age Elixir (12.5 mg/tsp) 25 mg pill 2-3 yr 1/2 tsp 4-8 yr 1 tsp 9-14 yr 2 tsp one tab adult 1-2 tabs Antihistamines may cause drowsiness, especially with the first dose. Do not operate machinery or drive while under the effects of the medication. Do not combine the medication with alcohol, or with any other medication without talking to your doctor. FOLLOW-UP CARE: If you have been referred to a physician for follow-up care, call the physician s office for an appointment as you were instructed or within the next two days. If you experience worsening or a significant change in your symptoms, notify the physician immediately or return to the Emergency Department at any time for re-evaluation. Prescriptions: Prednisone [Deltasone 20 mg Tablet] 3 tab PO DAILY 3 Days tablet Referrals: [facility] [Provider Group] - Follow up as needed
== END 2017-12-02 18:21 | disposition home or self-care (01) ==
LOC: ER 17:19
DX: R21 Rash and other nonspecific skin eruption (principal)
CPT/HCPCS: 99282; J3490; J7512

== ENCOUNTER 2018-09-22 19:23 | Outpatient (CLI) | payer MEDICAID ==
[2018-09-22 19:57] LABS: APPEARANCE,URINE SLIGHTLY-CLOUDY; BILIRUBIN,URINE NEGATIVE (NEGATIVE); COLOR,URINE YELLOW; GLUCOSE, URINE NEGATIVE (NEGATIVE); KETONES,URINE NEGATIVE (NEGATIVE); LEUKOCYTE ESTERASE,URINE NEGATIVE (NEGATIVE); NITRITE,URINE NEGATIVE (NEGATIVE); PROTEIN,URINE 30 mg/dL (NEGATIVE)
[2018-09-22] MEDS ORDERED: ONDANSETRON 4 MG TAB.RAPDIS PO ONE (20:07)
[2018-09-22] MEDS ORDERED: ONDANSETRON 4 MG TAB.RAPDIS ONE (20:11)
[2018-09-22 20:12] LABS: URINE AMPHETAMINES SCREEN NEGATIVE; URINE BARBITURATES SCREEN NEGATIVE; URINE BENZODIAZEPINES SCREEN NEGATIVE; URINE COCAINE SCREEN NEGATIVE; URINE MARIJUANA (THC) SCREEN NEGATIVE; URINE METHADONE SCREEN NEGATIVE; URINE PHENCYCLIDINE SCREEN NEGATIVE
--- NOTE | 2018-09-22 21:16 | RADIOLOGY REPORT (SQ) ---
EXAM DESCRIPTION: US LIMITED COMPLETED DATE/TME: 09/22/2018 00:00 CLINICAL HISTORY: 28 years, Female, cervical length abd pain Findings: Obstetric ultrasound, abdominal pain. FINDINGS: Single viable IUP is noted with estimated gestational age of 22 weeks and six days. heart rate preserved at 160 bpm. Cervix is closed measuring 3 cm. Placenta lies anteriorly. Fetus is in vertex presentation. IMPRESSION: Closed cervix with single viable IUP.
== END 2018-09-22 21:18 | disposition home or self-care (01) ==
LOC: LC 19:23
PROVIDERS: ATTEND Obstetrics & Gynecology
PROC: 4A1HXCZ Monitoring of Products of Conception, Cardiac Rate, External Approach (ICD-10-PCS; principal; 2018-09-22)
DX: O26.892 Other specified pregnancy related conditions, second trimester (principal); R10.9 Unspecified abdominal pain; Z3A.22 22 weeks gestation of pregnancy
CPT/HCPCS: 59899; 81001; 80307; 76815; S0119

== ENCOUNTER 2018-12-06 16:59 | Emergency (ER) | payer MEDICAID ==
[2018-12-06 17:05] VITALS: BP 115/73
--- NOTE | 2018-12-06 18:11 | ER Document Report ---
ED Medical Screen (RME) - General Chief Complaint: Abdominal Pain Stated Complaint: UPPER RIGHT SIDE ABDOMINAL PAIN Time Seen by Provider: 12/06/18 18:07 Mode of Arrival: Ambulatory Information source: Patient Notes: Is a 28-year-old female 2 para 1, 33 weeks , history of gallstones who presents to the emergency room with some right upper quadrant pain for the last 2 hours. Patient denies any vomiting. She denies any diarrhea. She denies any significant abdominal contractions. Labor and delivery was contacted and advised that the patient should be seen as an ED patient. TRAVEL OUTSIDE OF THE [place] IN LAST 30 DAYS: No - Related Data Allergies/Adverse Reactions: No Known Allergies Allergy (Verified 12/06/18 18:03) Past Medical History - Social History Frequency of alcohol use: None Drug Abuse: None - Past Medical History Cardiac Medical History: Denies: Hx Congestive Heart Failure, Hx Heart Attack, Hx Hypertension Pulmonary Medical History: Denies: Hx Asthma, Hx Bronchitis, Hx COPD Renal/ Medical History: Denies: Hx Peritoneal Dialysis GI Medical History: Denies: Hx Gastroesophageal Reflux Disease, Hx Ulcer Musculoskeltal Medical History: Denies Hx Arthritis Skin Medical History: Reports Hx Cellulitis - Mastitis Psychiatric Medical History: Denies: Hx Bipolar Disorder, Hx Depression, Hx Schizophrenia - Immunizations Immunizations up to date: Yes Hx Diphtheria, Pertussis, Tetanus Vaccination: Yes History of Influenza Vaccine for 08/2017 - 01/2018 Season: Yes Influenza Administration Date for 08/2017 - 01/2018 Season: 08/16/17 Physical Exam - Vital signs Vitals: Temp Pulse Resp BP Pulse Ox 97.6 F 98 18 115/73 97 12/06/18 17:04 12/06/18 17:04 12/06/18 17:04 12/06/18 17:04 12/06/18 17:04 Course - Vital Signs Vital signs: Temp Pulse Resp BP Pulse Ox 97.6 F 98 18 115/73 97 12/06/18 17:04 12/06/18 17:04 12/06/18 17:04 12/06/18 17:04 12/06/18 17:04
[2018-12-06 18:39] LABS: ABSOLUTE EOSINOPHILS # (AUTO) 0.1 10^3/uL (0.0-0.6); ABSOLUTE LYMPHOCYTES (AUTO) 1.2 10^3/uL (0.5-4.7); ABSOLUTE MONOCYTES (AUTO) 0.6 10^3/uL (0.1-1.4); ABSOLUTE NEUT (AUTO) 9.6 10^3/uL (1.7-8.2); BASOPHILS % (AUTO) 0.2 % (0-2); EOSINOPHILS % (AUTO) 0.6 % (0-6); HEMATOCRIT 38.1 % (36.0-47.0); HEMOGLOBIN 12.8 g/dL (12.0-15.5); LYMPHOCYTES % (AUTO) 10.5 % (13-45); MEAN CORPUSCULAR HEMOGLOBIN 29.1 pg (27.0-33.4); MEAN CORPUSCULAR HGB CONC 33.6 g/dL (32.0-36.0); MEAN CORPUSCULAR VOLUME 87 fl (80-97); MONOCYTES % (AUTO) 5.5 % (3-13); PLATELET COUNT 300 10^3/uL (150-450); RED CELL DISTRIBUTION WIDTH 15.6 % (11.5-14.0); SEGMENTED NEUTROPHILS % (AUTO) 83.2 % (42-78); TOTAL CELLS COUNTED % (AUTO) 100 %; WHITE BLOOD COUNT 11.5 10^3/uL (4.0-10.5)
[2018-12-06 18:58] LABS: ALANINE AMINOTRANSFERASE 33 U/L (9-52); ALBUMIN 3.7 g/dL (3.5-5.0); ALKALINE PHOSPHATASE 149 U/L (38-126); ANION GAP 6 (5-19); ASPARTATE AMINO TRANSFERASE 45 U/L (14-36); BILIRUBIN,DIRECT 0.3 mg/dL (0.0-0.4); BILIRUBIN,TOTAL 0.7 mg/dL (0.2-1.3); BLOOD UREA NITROGEN 9 mg/dL (7-20); CALCIUM 8.6 mg/dL (8.4-10.2); CARBON DIOXIDE 26 mmol/L (22-30); CHLORIDE 103 mmol/L (98-107); GLUCOSE 85 mg/dL (75-110); LIPASE 85.7 U/L (23-300); POTASSIUM 4.3 mmol/L (3.6-5.0); SODIUM 135.1 mmol/L (137-145); TOTAL PROTEIN 6.5 g/dL (6.3-8.2)
--- NOTE | 2018-12-06 19:54 | RADIOLOGY REPORT (SQ) ---
EXAM DESCRIPTION: U/S ABDOMEN LIMITED W/O DOP COMPLETED DATE/TIME: 12/06/2018 7:17 pm REASON FOR STUDY: ruq pain COMPARISON: 09/16/2017 TECHNIQUE: Dynamic and static grayscale images acquired of the abdomen and recorded on PACS. Dre shelton selected color Doppler and spectral images recorded. LIMITATIONS: None. FINDINGS: PANCREAS: Poorly seen. LIVER: No masses. Echotexture normal. LIVER VASCULATURE: Normal directional flow of the main portal vein and hepatic veins. GALLBLADDER: No stones. Normal wall thickness. No pericholecystic fluid. ULTRASOUND-DETECTED HUERTA'S SIGN: Positive. INTRAHEPATIC DUCTS AND COMMON DUCT: CBD and intrahepatic ducts normal caliber. No filling defects. INFERIOR VENA CAVA: Normal flow. AORTA: No aneurysm. RIGHT KIDNEY: Normal size, 9.5 cm. Normal echogenicity. No solid or suspicious masses. No hydronephr osis. No calcifications. PERITONEAL AND RIGHT PLEURAL SPACE: No ascites or effusions. OTHER: No other significant findings. IMPRESSION: No gallstones. However there is a positive sonographic Huerta sign. TECHNICAL DOCUMENTATION: JOB ID: [id number] [employer]- All Rights Reserved Reading location - IP/workstation name: [email or web address]
--- NOTE | 2018-12-06 19:55 | RADIOLOGY REPORT (SQ) ---
EXAM DESCRIPTION: U/S OB LIMITED COMPLETED DATE/TIME: 12/06/2018 7:18 pm REASON FOR STUDY: : 33 weeks COMPARISON: 09/22/2018 TECHNIQUE: Limited transabdominal grayscale ultrasound for evaluation of specific requested obstetri martín parameters. LIMITATIONS: None. FINDINGS: CERVICAL LENGTH: 3.2 closed. RADHA: 13.1 cm. FHR: 160 beats per minute. PRESENTATION: Cephalic. PLACENTA: Anterior. Grade 1. ANATOMY: Not assessed OTHER: No other significant findings. IMPRESSION: LIMITED OBSTETRICAL ULTRASOUND WITH MEASURED PARAMETERS DELINEATED ABOVE. Trimester of : Third trimester - 28 weeks to delivery. TECHNICAL DOCUMENTATION: JOB ID: [id number] [employer] All Rights Reserved Reading location - IP/workstation name: [email or web address]
[2018-12-06] MEDS ORDERED: NORMAL SALINE 1000 ML 1,000 ML IV ONE (20:56)
--- NOTE | 2018-12-06 21:49 | ER Document Report ---
ED General - General Chief Complaint: Abdominal Pain Stated Complaint: UPPER RIGHT SIDE ABDOMINAL PAIN Time Seen by Provider: 12/06/18 18:07 Primary Care Provider: FOREIGN RODRIGUEZ DO [Primary Care Provider] - Follow up as needed Mode of Arrival: Ambulatory Notes: Patient is a 28-year-old female currently 33.4 weeks presents to the emergency department for right upper quadrant pain. Patient states around 1600 hrs. this afternoon she noticed that she had sharp right upper quadrant pain right flank pain. States she vomited x2. Patient is denying any diarrhea, is denying fever. Patient is also denying any dysuria, or vaginal discharge to include blood. Patient states she does feel some generalized abdominal cramping. Patient states a few weeks ago she was diagnosed with gallstones in another emergency room. States at that time she was sent home and to follow-up outpatient. Patient states she re-presents to the emergency room in [place] a couple days later for continued pain. Patient states at that time they told her that she had preeclampsia and hellp syndrome and admitted her to the hospital. patient states after being treated in the hospital they told her that she did not have hellp syndrome and she was not preeclamptic and all of her labs had n ormalized. Patient is unable to tell me if her blood pressure was high at this time. States she is unsure. Patient states her urinary catheter was removed on . Patient states "they did not address my gallstones at that time due to everything else." Patient states since then she has had no complaints until today around 1600 hrs. patient denies history of kidney stones. Past medical history: gallstones Medications: None Allergies: None TRAVEL OUTSIDE OF THE [place] IN LAST 30 DAYS: No - Related Data Allergies/Adverse Reactions: No Known Allergies Allergy (Verified 12/06/18 18:03) Past Medical History - General Information source: Patient - Social History Smoking Status: Never Smoker Frequency of alcohol use: None Drug Abuse: None Family History: Reviewed & Not Pertinent Patient has suicidal ideation: No Patient has homicidal ideation: No - Past Medical History Cardiac Medical History: Denies: Hx Congestive Heart Failure, Hx Heart Attack, Hx Hypertension Pulmonary Medical History: Denies: Hx Asthma, Hx Bronchitis, Hx COPD Renal/ Medical History: Denies: Hx Peritoneal Dialysis GI Medical History: Denies: Hx Gastroesophageal Reflux Disease, Hx Ulcer Musculoskeletal Medical History: Denies Hx Arthritis Skin Medical History: Reports Hx Cellulitis - Mastitis Psychiatric Medical History: Denies: Hx Bipolar Disorder, Hx Depression, Hx Schizophrenia - Immunizations Immunizations up to date: Yes Hx Diphtheria, Pertussis, Tetanus Vaccination: Yes Review of Systems - Review of Systems Constitutional: See HPI EENT: No symptoms reported Cardiovascular: No symptoms reported Respiratory: No symptoms reported Gastrointestinal: See HPI Genitourinary: See HPI Female Genitourinary: See HPI Musculoskeletal: No symptoms reported Skin: No symptoms reported Hematologic/Lymphatic: No symptoms reported Neurological/Psychological: No symptoms reported Physical Exam - Vital signs Vitals: Temp Pulse Resp BP Pulse Ox 97.6 F 98 18 115/73 97 12/06/18 17:04 12/06/18 17:04 12/06/18 17:04 12/06/18 17:04 12/06/18 17:04 - Notes Notes: GENERAL: Alert, interacts well. No acute distress. HEAD: Normocephalic, atraumatic. EYES: Pupils equal, round, and reactive to light. Extraocular movements intact. ENT: Oral mucosa moist, tongue midline. [Nares patent, no nasal septal hematoma, TM's intact.] NECK: Full range of motion. Supple. Trachea midline. LUNGS: Clear to auscultation bilaterally, no wheezes, rales, or rhonchi. No respiratory distress. HEART: Regular rate and rhythm. No murmur ABDOMEN: Obviously gravid, soft. Non-distended. Bowel sounds present in all 4 quadrants. Positive Bañuelos sign, no McBurney's point tenderness. Patient also has right CVA tenderness. Patient denies right upper quadrant or right flank pain radiating down through to her groin. EXTREMITIES: Moves all 4 extremities spontaneously. No edema, normal radial and dorsalis pedis pulses bilaterally. No cyanosis. BACK: no cervical, thoracic, lumbar midline tenderness. No saddle anesthesia, normal distal neurovascular exam. NEUROLOGICAL: Alert and oriented x3. Normal speech. cranial nerves II through XII grossly intact PSYCH: Normal affect, normal mood. SKIN: Warm, dry, normal turgor. No rashes or lesions noted. Course - Re-evaluation Re-evalutation: 12/06/18 22:36 Patient's labs do show leukocytosis of 11.5, no signs of anemia. Her platelet count was 300. Sodium is 135.1 treated with normal saline solution in the e mergency department her AST is minorly elevated at 45 and her ALT is 33. Patient's blood pressure has been stable in the emergency department 115/73. Patient's urine does show trace high leuk esterase and 5 WBCs, trace bacteria. We will treat her for urinary tract infection in . Patient's ultrasound showed no gallstones, no signs of cholecystitis, no hydronephrosis noted to the right kidney. After treatments in the emergency room patient continues with right upper quadrant and right flank pain. Discussed this case with Dr. Lisa Looney who recommends sending the pt. to L&D due to her work up in the ED being normal. Patient currently stable for discharge. Will be sent to labor and delivery. - Vital Signs Vital signs: Temp Pulse Resp BP Pulse Ox 97.6 F 98 18 115/73 97 12/06/18 17:04 12/06/18 17:04 12/06/18 17:04 12/06/18 17:04 12/06/18 17:04 - Laboratory Result Diagrams: 12/06/18 18:30 12/06/18 18:30 Laboratory results interpreted by me: 12/06/18 12/06/18 12/06/18 18:30 18:30 21:55 WBC 11.5 H RDW 15.6 H Seg Neutrophils % 83.2 H Lymphocytes % 10.5 L Absolute Neutrophils 9.6 H Sodium 135.1 L AST 45 H Alkaline Phosphatase 149 H Urine Protein 30 H Urine Ketones 80 H Urine Urobilinogen 4.0 H Ur Leukocyte Esterase TRACE H Discharge - Discharge Clinical Impression: Right upper quadrant pain, Right flank pain Condition: Stable Disposition: HOME, SELF-CARE Instructions: Abdominal Pain ([facility]), Flank Pain ([facility]) Additional Instructions: As we discussed you have been seen and treated in the emergency department for your right upper quadrant abdominal pain in your right flank pain. At this time your workup shows no signs of abnormalities. He will be sent to labor and delivery for continuing monitoring of your . Please after discharge from labor and delivery if you continue with abdominal pain or have any other concerning symptoms please present to the emergency room. Referrals: FOREIGN RODRIGUEZ DO [Primary Care Provider] - Follow up as needed
[2018-12-06] MEDS ORDERED: FENTANYL CITRATE INJ/PF 100 MCG/2 ML AMPUL IV ONE (21:59)
[2018-12-06 22:14] LABS: APPEARANCE,URINE SLIGHTLY-CLOUDY; BILIRUBIN,URINE NEGATIVE (NEGATIVE); COLOR,URINE AMBER; GLUCOSE, URINE NEGATIVE (NEGATIVE); KETONES,URINE 80 mg/dL (NEGATIVE); LEUKOCYTE ESTERASE,URINE TRACE (NEGATIVE); NITRITE,URINE NEGATIVE (NEGATIVE); PROTEIN,URINE 30 mg/dL (NEGATIVE); URINE SPECIFIC GRAVITY 1.019
[2018-12-07 00:30] LABS: URINE AMPHETAMINES SCREEN NEGATIVE; URINE BARBITURATES SCREEN NEGATIVE; URINE BENZODIAZEPINES SCREEN NEGATIVE; URINE COCAINE SCREEN NEGATIVE; URINE MARIJUANA (THC) SCREEN NEGATIVE; URINE METHADONE SCREEN NEGATIVE; URINE PHENCYCLIDINE SCREEN NEGATIVE
== END 2018-12-06 22:55 | disposition home or self-care (01) ==
LOC: ER 16:59
DX: O26.93 Pregnancy related conditions, unspecified, third trimester (principal); R10.11 Right upper quadrant pain; Z3A.33 33 weeks gestation of pregnancy
CPT/HCPCS: 99284; 96374; 36415; 87086; 83690; 85025; 80053; 81001; 80307; 76705; 76815; J3010; J7030

== ENCOUNTER 2018-12-06 22:48 | Outpatient (CLI) | payer MEDICAID ==
[2018-12-06] MEDS: RINGERS SOLUTION,LACTATED 1,000 ML IV PRN (23:47)
[2018-12-06] MEDS ORDERED: ACETAMINOPHEN 325 MG TABLET PO ONE (23:48)
[2018-12-06] MEDS ORDERED: ACETAMINOPHEN 325 MG TABLET ONE (23:51)
[2018-12-07] MEDS ORDERED: TERBUTALINE SULFATE INJ/PF 1 MG/1 ML SDV ONE (01:42)
[2018-12-07] MEDS ORDERED: TERBUTALINE SULFATE INJ/PF 1 MG/1 ML SDV SUBCUT ONE (01:42)
[2018-12-07] MEDS: RINGERS SOLUTION,LACTATED 1,000 ML IV PRN (01:57)
== END 2018-12-07 03:27 | disposition home or self-care (01) ==
LOC: ER 22:48 → LC 12-07 03:27
PROVIDERS: ATTEND Obstetrics & Gynecology
PROC: 4A1HXCZ Monitoring of Products of Conception, Cardiac Rate, External Approach (ICD-10-PCS; principal; 2018-12-06)
DX: O99.613 Diseases of the digestive system complicating pregnancy, third trimester (principal); K81.9 Cholecystitis, unspecified; Z3A.33 33 weeks gestation of pregnancy
CPT/HCPCS: 59025; J3490; J3105

== ENCOUNTER 2018-12-08 21:37 | Outpatient (CLI) | payer MEDICAID ==
[2018-12-08 22:30] LABS: APPEARANCE,URINE CLEAR; BILIRUBIN,URINE NEGATIVE (NEGATIVE); COLOR,URINE COLORLESS; GLUCOSE, URINE NEGATIVE (NEGATIVE); KETONES,URINE NEGATIVE (NEGATIVE); LEUKOCYTE ESTERASE,URINE NEGATIVE (NEGATIVE); NITRITE,URINE NEGATIVE (NEGATIVE); PROTEIN,URINE NEGATIVE (NEGATIVE); URINE SPECIFIC GRAVITY 1.002; UROBILINOGEN,URINE NEGATIVE mg/dL (<2.0)
[2018-12-08] MEDS ORDERED: TERBUTALINE SULFATE INJ/PF 1 MG/1 ML SDV ONE (22:42)
[2018-12-08] MEDS ORDERED: TERBUTALINE SULFATE INJ/PF 1 MG/1 ML SDV SUBCUT ONE (22:42)
[2018-12-08 22:44] LABS: URINE AMPHETAMINES SCREEN NEGATIVE; URINE BARBITURATES SCREEN NEGATIVE; URINE BENZODIAZEPINES SCREEN NEGATIVE; URINE COCAINE SCREEN NEGATIVE; URINE MARIJUANA (THC) SCREEN NEGATIVE; URINE METHADONE SCREEN NEGATIVE; URINE PHENCYCLIDINE SCREEN NEGATIVE
--- NOTE | 2018-12-08 23:24 | Non Stress Test Report ---
Non Stress Test Datetime Report Generated by CPN: 12/08/2018 23:24 DEMOGRAPHIC EGA NST: 33.6 INDICATION Indication for Study: Ordered by Provider MONITORING Monitor Explained: Monitor Explained; Test Explained; Patient Verbalized Understanding Time on Monitor: 12/08/2018 22:51 Time off Monitor: 12/08/2018 23:19 NST Duration: 28 NST INTERVENTIONS NST Interventions: PO Hydration; Reposition Patient Physician Notified NST: Dr. Mccord BABY A Movement : Present FHR Baseline : 140 Accelerations : 15X15 Decelerations : None Variability : Moderate 6-25bpm NST Review: Meets Criteria for Reactive NST NST Review and Verified By : JESSICA Garcia Results: Reactive NST REPORT Report Trigger: Send Report
== END 2018-12-08 23:31 | disposition home or self-care (01) ==
LOC: LC 21:37
PROVIDERS: ATTEND Obstetrics & Gynecology
PROC: 4A1HXCZ Monitoring of Products of Conception, Cardiac Rate, External Approach (ICD-10-PCS; principal; 2018-12-08)
DX: O47.03 False labor before 37 completed weeks of gestation, third trimester (principal); Z3A.33 33 weeks gestation of pregnancy
CPT/HCPCS: 59025; 94760; 81001; 80307; J3105

== ENCOUNTER 2018-12-11 02:02 | Outpatient (CLI) | payer MEDICAID ==
[2018-12-11] MEDS ORDERED: HYDROXYZINE PAMOATE 50 MG CAPSULE ONE (02:34)
[2018-12-11] MEDS ORDERED: RINGERS SOLUTION,LACTATED 1,000 ML IV PRN (02:39)
[2018-12-11 02:53] LABS: APPEARANCE,URINE CLEAR; BILIRUBIN,URINE NEGATIVE (NEGATIVE); COLOR,URINE YELLOW; GLUCOSE, URINE NEGATIVE (NEGATIVE); KETONES,URINE 20 mg/dL (NEGATIVE); LEUKOCYTE ESTERASE,URINE NEGATIVE (NEGATIVE); NITRITE,URINE NEGATIVE (NEGATIVE); PROTEIN,URINE NEGATIVE (NEGATIVE); URINE SPECIFIC GRAVITY 1.011
[2018-12-11] MEDS ORDERED: HYDROXYZINE PAMOATE 50 MG CAPSULE PO ONE (03:00)
[2018-12-11 03:16] LABS: URINE AMPHETAMINES SCREEN NEGATIVE; URINE BARBITURATES SCREEN NEGATIVE; URINE BENZODIAZEPINES SCREEN NEGATIVE; URINE COCAINE SCREEN NEGATIVE; URINE MARIJUANA (THC) SCREEN NEGATIVE; URINE METHADONE SCREEN NEGATIVE; URINE PHENCYCLIDINE SCREEN NEGATIVE
[2018-12-11] MEDS ORDERED: TERBUTALINE SULFATE INJ/PF 1 MG/1 ML SDV ONE (04:16)
[2018-12-11] MEDS ORDERED: TERBUTALINE SULFATE INJ/PF 1 MG/1 ML SDV SUBCUT ONE (04:30)
[2018-12-11] MEDS ORDERED: ONDANSETRON HCL INJ/PF 4 MG/2 ML SDV ONE (04:30)
--- NOTE | 2018-12-11 07:07 | Non Stress Test Report ---
Non Stress Test Datetime Report Generated by CPN: 12/11/2018 07:07 DEMOGRAPHIC EGA NST: 34.2 INDICATION Indication for Study (NST) Other: abdominal pain MONITORING Monitor Explained: Monitor Explained; Test Explained; Patient Verbalized Understanding Time on Monitor: 12/11/2018 05:30 Time off Monitor: 12/11/2018 06:14 NST Duration: 44 NST INTERVENTIONS NST Interventions: PO Hydration; IV Fluids Physician Notified NST: Gregory BABY A: [id number] BABY A Movement : Present Contraction Frequency : 9-13 FHR Baseline : 135 Accelerations : 15X15 Decelerations : None Variability : Moderate 6-25bpm NST Review: Meets Criteria for Reactive NST NST Review and Verified By : Medardo Vale RN Results: Reactive NST REPORT Report Trigger: Send Report
== END 2018-12-11 06:29 | disposition home or self-care (01) ==
LOC: LC 02:02
PROVIDERS: ATTEND Obstetrics & Gynecology
PROC: 4A1HXCZ Monitoring of Products of Conception, Cardiac Rate, External Approach (ICD-10-PCS; principal; 2018-12-11)
DX: O26.893 Other specified pregnancy related conditions, third trimester (principal); R10.9 Unspecified abdominal pain; Z3A.34 34 weeks gestation of pregnancy
CPT/HCPCS: 81001; 80307; 59025; J3490; J3105; J2405

== ENCOUNTER 2018-12-20 14:14 | Outpatient (CLI) | payer MEDICAID ==
[2018-12-20] MEDS ORDERED: RINGERS SOLUTION,LACTATED 300 ML IV ONE (14:54)
[2018-12-20] MEDS ORDERED: RINGERS SOLUTION,LACTATED 1,000 ML IV PRN (14:54)
[2018-12-20] MEDS ORDERED: ONDANSETRON HCL INJ/PF 4 MG/2 ML SDV IV PRN (14:55)
[2018-12-20] MEDS ORDERED: HYDROXYZINE PAMOATE 50 MG CAPSULE PO ONE (15:00)
[2018-12-20] MEDS ORDERED: ONDANSETRON HCL INJ/PF 4 MG/2 ML SDV ONE (15:15)
[2018-12-20] MEDS ORDERED: HYDROXYZINE PAMOATE 50 MG CAPSULE ONE (15:36)
[2018-12-20 15:53] LABS: ABSOLUTE LYMPHOCYTES (AUTO) 0.9 10^3/uL (0.5-4.7); ABSOLUTE MONOCYTES (AUTO) 0.5 10^3/uL (0.1-1.4); ABSOLUTE NEUT (AUTO) 5.6 10^3/uL (1.7-8.2); BASOPHILS % (AUTO) 0.4 % (0-2); EOSINOPHILS % (AUTO) 0.3 % (0-6); HEMATOCRIT 35.2 % (36.0-47.0); HEMOGLOBIN 11.9 g/dL (12.0-15.5); MEAN CORPUSCULAR HEMOGLOBIN 28.9 pg (27.0-33.4); MEAN CORPUSCULAR HGB CONC 33.8 g/dL (32.0-36.0); MEAN CORPUSCULAR VOLUME 86 fl (80-97); MONOCYTES % (AUTO) 7.2 % (3-13); PLATELET COUNT 240 10^3/uL (150-450); RED BLOOD COUNT 4.12 10^6/uL (3.72-5.28); RED CELL DISTRIBUTION WIDTH 16.3 % (11.5-14.0); SEGMENTED NEUTROPHILS % (AUTO) 79.1 % (42-78); TOTAL CELLS COUNTED % (AUTO) 100 %; WHITE BLOOD COUNT 7.1 10^3/uL (4.0-10.5)
[2018-12-20 16:02] LABS: ALANINE AMINOTRANSFERASE 25 U/L (9-52); ALBUMIN 3.5 g/dL (3.5-5.0); ALKALINE PHOSPHATASE 190 U/L (38-126); ANION GAP 10 (5-19); ASPARTATE AMINO TRANSFERASE 25 U/L (14-36); BILIRUBIN,DIRECT 0.8 mg/dL (0.0-0.4); BILIRUBIN,TOTAL 1.6 mg/dL (0.2-1.3); BLOOD UREA NITROGEN 9 mg/dL (7-20); CALCIUM 8.4 mg/dL (8.4-10.2); CARBON DIOXIDE 20 mmol/L (22-30); CHLORIDE 107 mmol/L (98-107); POTASSIUM 4.4 mmol/L (3.6-5.0); SODIUM 136.7 mmol/L (137-145); TOTAL PROTEIN 6.2 g/dL (6.3-8.2)
[2018-12-20 16:04] LABS: GLUCOSE 62 mg/dL (75-110)
[2018-12-20] MEDS ORDERED: TERBUTALINE SULFATE INJ/PF 1 MG/1 ML SDV SUBCUT ONE (16:38)
[2018-12-20] MEDS ORDERED: TERBUTALINE SULFATE INJ/PF 1 MG/1 ML SDV ONE (16:49)
[2018-12-20 17:06] LABS: APPEARANCE,URINE CLEAR; BILIRUBIN,URINE NEGATIVE (NEGATIVE); COLOR,URINE YELLOW; GLUCOSE, URINE NEGATIVE (NEGATIVE); KETONES,URINE 80 mg/dL (NEGATIVE); LEUKOCYTE ESTERASE,URINE NEGATIVE (NEGATIVE); NITRITE,URINE NEGATIVE (NEGATIVE); PROTEIN,URINE NEGATIVE (NEGATIVE); URINE SPECIFIC GRAVITY 1.011; UROBILINOGEN,URINE NEGATIVE mg/dL (<2.0)
[2018-12-20 17:29] LABS: URINE AMPHETAMINES SCREEN NEGATIVE; URINE BARBITURATES SCREEN NEGATIVE; URINE BENZODIAZEPINES SCREEN NEGATIVE; URINE COCAINE SCREEN NEGATIVE; URINE MARIJUANA (THC) SCREEN NEGATIVE; URINE METHADONE SCREEN NEGATIVE; URINE PHENCYCLIDINE SCREEN NEGATIVE
--- NOTE | 2018-12-20 18:13 | Non Stress Test Report ---
Non Stress Test Datetime Report Generated by CPN: 12/20/2018 18:13 DEMOGRAPHIC Test Number: 2 EGA NST: 35.4 INDICATION Indication for Study: Ordered by Provider VITAL SIGNS Temperature - NST: 98.0 Pulse - NST: 100 RESP - NST: 20 NBPSYS NST: 96 NBPDIA NST: 58 MONITORING Monitor Explained: Monitor Explained; Test Explained; Patient Verbalized Understanding Time on Monitor: 12/20/2018 14:30 Time off Monitor: 12/20/2018 18:06 NST Duration: 216 NST INTERVENTIONS NST Interventions: PO Hydration; IV Fluids; Reposition Patient Physician Notified NST: Dr. Gregory BABY A: [id number] BABY A Movement : Present Contraction Frequency : 0 FHR Baseline : 135 Accelerations : 15X15 Decelerations : None Variability : Moderate 6-25bpm NST Review: Meets Criteria for Reactive NST NST Review and Verified By : JESSICA Peters NST Results: Reactive NST REPORT Report Trigger: Send Report
== END 2018-12-20 18:10 | disposition home or self-care (01) ==
LOC: LC 14:14
PROVIDERS: ATTEND Obstetrics & Gynecology
PROC: 4A1HXCZ Monitoring of Products of Conception, Cardiac Rate, External Approach (ICD-10-PCS; principal; 2018-12-20)
DX: O47.03 False labor before 37 completed weeks of gestation, third trimester (principal); O99.613 Diseases of the digestive system complicating pregnancy, third trimester; K80.20 Calculus of gallbladder without cholecystitis without obstruction; Z3A.35 35 weeks gestation of pregnancy
CPT/HCPCS: 59025; 36415; 85025; 80053; 81001; 80307; J3490; J3105; J2405

== ENCOUNTER 2018-12-21 02:22 | Outpatient (CLI) | payer MEDICAID ==
[2018-12-21] MEDS ORDERED: TERBUTALINE SULFATE INJ/PF 1 MG/1 ML SDV ONE (02:48)
--- NOTE | 2018-12-21 04:41 | Non Stress Test Report ---
Non Stress Test Datetime Report Generated by CPN: 12/21/2018 04:41 DEMOGRAPHIC Test Number: 5 EGA NST: 35.5 INDICATION Indication for Study: Other Indication for Study (NST) Other: labor/check pain in RUQ MONITORING Monitor Explained: Monitor Explained; Patient Verbalized Understanding Time on Monitor: 12/21/2018 03:21 Time off Monitor: 12/21/2018 04:25 NST Duration: 64 NST INTERVENTIONS NST Interventions: PO Hydration; Reposition Patient Physician Notified NST: Gregory BABY A: [id number] BABY A Movement : Present Contraction Frequency : rare FHR Baseline : 140 Accelerations : 15X15 Decelerations : None Variability : Moderate 6-25bpm NST Review: Meets Criteria for Reactive NST NST Review and Verified By : Yordan Chacon RNC NST Results: Reactive NST REPORT Report Trigger: Send Report
== END 2018-12-21 04:33 | disposition home or self-care (01) ==
LOC: LC 02:22
PROVIDERS: ATTEND Obstetrics & Gynecology
DX: Z34.93 Encounter for supervision of normal pregnancy, unspecified, third trimester (principal); Z3A.35 35 weeks gestation of pregnancy
CPT/HCPCS: J3105

== ENCOUNTER 2018-12-22 06:50 | Inpatient (IN) | payer MEDICAID ==
[2018-12-22] MEDS ORDERED: RINGERS SOLUTION,LACTATED 1,000 ML IV ONE (07:11)
[2018-12-22] MEDS ORDERED: ONDANSETRON HCL INJ/PF 4 MG/2 ML SDV IV ONE (07:12)
[2018-12-22] MEDS ORDERED: ONDANSETRON HCL INJ/PF 4 MG/2 ML SDV ONE (07:14)
[2018-12-22] MEDS ORDERED: NALBUPHINE HCL INJ 10 MG/1 ML AMPULE INJ ONE (07:34)
[2018-12-22] MEDS ORDERED: NALBUPHINE HCL INJ 10 MG/1 ML AMPULE ONE (07:35)
[2018-12-22 07:54] LABS: ABSOLUTE EOSINOPHILS # (AUTO) 0.1 10^3/uL (0.0-0.6); ABSOLUTE LYMPHOCYTES (AUTO) 0.9 10^3/uL (0.5-4.7); ABSOLUTE MONOCYTES (AUTO) 0.5 10^3/uL (0.1-1.4); BASOPHILS % (AUTO) 0.7 % (0-2); HEMATOCRIT 32.4 % (36.0-47.0); LYMPHOCYTES % (AUTO) 15.7 % (13-45); MEAN CORPUSCULAR HEMOGLOBIN 28.5 pg (27.0-33.4); MEAN CORPUSCULAR HGB CONC 33.9 g/dL (32.0-36.0); MEAN CORPUSCULAR VOLUME 84 fl (80-97); MONOCYTES % (AUTO) 8.5 % (3-13); PLATELET COUNT 227 10^3/uL (150-450); RED BLOOD COUNT 3.85 10^6/uL (3.72-5.28); RED CELL DISTRIBUTION WIDTH 16.5 % (11.5-14.0); SEGMENTED NEUTROPHILS % (AUTO) 74.1 % (42-78); TOTAL CELLS COUNTED % (AUTO) 100 %; WHITE BLOOD COUNT 5.4 10^3/uL (4.0-10.5)
[2018-12-22 07:57] LABS: APPEARANCE,URINE CLOUDY; BILIRUBIN,URINE MODERATE (NEGATIVE); COLOR,URINE AMBER; GLUCOSE, URINE NEGATIVE (NEGATIVE); KETONES,URINE 80 mg/dL (NEGATIVE); LEUKOCYTE ESTERASE,URINE MODERATE (NEGATIVE); NITRITE,URINE NEGATIVE (NEGATIVE); PROTEIN,URINE 100 mg/dL (NEGATIVE); URINE SPECIFIC GRAVITY 1.024
[2018-12-22 08:05] LABS: ALANINE AMINOTRANSFERASE 27 U/L (9-52); ALBUMIN 3.3 g/dL (3.5-5.0); ALKALINE PHOSPHATASE 180 U/L (38-126); AMYLASE 72 U/L (30-110); ANION GAP 10 (5-19); ASPARTATE AMINO TRANSFERASE 23 U/L (14-36); BILIRUBIN,DIRECT 1.2 mg/dL (0.0-0.4); BILIRUBIN,TOTAL 2.1 mg/dL (0.2-1.3); BLOOD UREA NITROGEN 5 mg/dL (7-20); CALCIUM 8.1 mg/dL (8.4-10.2); CARBON DIOXIDE 20 mmol/L (22-30); CHLORIDE 106 mmol/L (98-107); GLUCOSE 75 mg/dL (75-110); LIPASE 52.3 U/L (23-300); POTASSIUM 4.1 mmol/L (3.6-5.0); SODIUM 135.6 mmol/L (137-145); TOTAL PROTEIN 5.9 g/dL (6.3-8.2)
[2018-12-22 08:10] LABS: URINE AMPHETAMINES SCREEN NEGATIVE; URINE BARBITURATES SCREEN NEGATIVE; URINE BENZODIAZEPINES SCREEN NEGATIVE; URINE COCAINE SCREEN NEGATIVE; URINE MARIJUANA (THC) SCREEN NEGATIVE; URINE METHADONE SCREEN NEGATIVE; URINE PHENCYCLIDINE SCREEN NEGATIVE
--- NOTE | 2018-12-22 09:25 | RADIOLOGY REPORT (SQ) ---
EXAM DESCRIPTION: U/S ABDOMEN LTD W/DOPPLER COMPLETED DATE/TIME: 12/22/2018 8:52 am REASON FOR STUDY: concern for gallstones, RUQ pain persistent COMPARISON: 12/06/2018 right upper quadrant ultrasound TECHNIQUE: Dynamic and static grayscale images acquired of the abdomen and recorded on PACS. Additio nal selected color Doppler and spectral images recorded. LIMITATIONS: Midline bowel gas FINDINGS: PANCREAS: Not well seen LIVER: No masses. Echotexture normal. LIVER VASCULATURE: Normal directional flow of the main portal vein and hepatic veins. GALLBLADDER: Diffuse gallbladder wall thickening is present with pericholecystic fluid. Sludge is pr esent in the gallbladder, with tiny stones near the gallbladder neck. Findings are worrisome for acu te cholecystitis. Results called to Dr. Alicea, 0900 hours 12/22/2018. ULTRASOUND-DETECTED BAÑUELOS'S SIGN: Positive INTRAHEPATIC DUCTS AND COMMON DUCT: CBD and intrahepatic ducts normal caliber. No filling defects. INFERIOR VENA CAVA: Normal flow. AORTA: No aneurysm. RIGHT KIDNEY: Normal size. Normal echogenicity. No solid or suspicious masses. No hydronephrosis. No calcifications. PERITONEAL AND RIGHT PLEURAL SPACE: No ascites or effusions. OTHER: No other significant findings. IMPRESSION: Gallbladder wall thickening, pericholecystic fluid, and gallbladder sludge. Tiny stones are now evident in the gallbladder neck. Positive sonographic Bañuelos's sign. Findings worrisome fo r acute cholecystitis. TECHNICAL DOCUMENTATION: JOB ID: [id number] [employer]- All Rights Reserved Reading location - IP/workstation name: [email or web address]
--- NOTE | 2018-12-22 10:58 | Admission Physical ---
Datetime Report Generated by CPN: 12/22/2018 10:58 CURRENT ADMISSION Chief Complaint: Other Chief Complaint Other: gallstones Indication for Induction: Not Applicable Admit Impression : , Intrauterine Admit Impression- Other: cholecystitis Admit Plan: Admit to Unit Admit Plan- Other: begin abx and surgical consult ALLERGIES Medication Allergies: No Medication Allergies: No Known Allergies (12/22/2018) Latex: No Latex Allergies Food Allergies: none Environmental Allergies: none OBSTETRICAL HISTORY EDC: 01/20/2019 00:00 : 2 Para: 1 Term: 1 : 0 SAB: 0 IAB: 0 Ectopic: 0 Livin Cesareans: 0 VBACs: 0 Multiple Births: 0 Gestational Diabetes: No Rh Sensitization: No Incompetent Cervix: No COLT: No Infertility: No ART Treatment: No Uterine Anomaly: No IUGR: No Hx Previous C/S: No Macrosomia: No Hx Loss/Stillborn: No PIH: No Hx : No Placenta Previa/Abruption: No Depression/PP Depression: No PTL/PROM: No Post Hemorrhage: No Current Procedures: Ultrasound Obstetrical History Comments: pt states last week was admitted in [place] for same pain was told she was PreE with HELLP for elevated liver panel, after course BMZ and Mag treament per pt was told her labs went back to normal and was discharged and [facility]. pt was seen in the [facility] office on 12/03 after returning to [facility] on and was told she did not need further follow up at this time-see notes in SEE RECORDS Alcohol: No Marijuana : No Cocaine: No Other Illicit Drugs: No Cigarettes: Never Smoker. [id number] MEDICAL HISTORY Diabetes: No Blood Transfusion: No Pulmonary Disease (Asthma, TB): No Breast Disease: No Hypertension: No Group Practice Pediatrician Surgery: No Heart Disease: No Hosp/Surgery: Yes Autoimmune Disorder: No Anesthetic Complications: No Kidney Disease: No Abnormal Pap Smear: Yes Neuro/Epilepsy: No Psychiatric Disorders: No Other Medical Diseases: No Hepatitis/Liver Disease: No Significant Family History: No Varicosities/Phlebitis: No Trauma/Violence : No Thyroid Dysfunction: No INFECTIOUS HISTORY Gonorrhea: No Genital Herpes: No Chlamydia: No Tuberculosis: No Syphilis: No Hepatitis: No HIV/AIDS Exposure: No Rash or Viral Illness: No HPV: No PHYSICAL EXAM General: Normal HEENT: Normal Neurologic: Normal Thyroid: Normal Heart: Normal Lungs: Normal Breast: Deferred Back: Normal Abdomen: Abnormal Genitourinary Exam: Normal Extremities: Normal DTRs: Normal Pelvic Type: Adequate Physical Exam Comments: [place] sign Vital Signs: Reviewed FETUS A EGA: 35.6 Monitoring: External US FHR- Baseline: 140 Decelerations: None FHR Category: Category I Presentation: Vertex Admit Comment: begin abx and surg consult PLANS FOR LABOR AND DELIVERY Labor and Delivery: None Pain Management: Epidural Feeding Preference: Breast Benefit of Breast Feed Discussed: Yes Circumcision: Yes INFORMED CONSENT Signature: with User ID: [email or web address]
[2018-12-22] MEDS: RINGERS SOLUTION,LACTATED 1,000 ML IV PRN ×2 (11:39→20:22)
[2018-12-22] MEDS: PIPERACILLIN SODIUM/TAZOBACTAM 3.375 GM in NORMAL SALINE 100 ML IV SCH ×3 (11:39→23:14)
[2018-12-22] MEDS ORDERED: PIPERACILLIN/TAZOBACTAM 3.375 GM VIAL IV SCH (12:00)
[2018-12-22] MEDS ORDERED: OXYCODONE-ACETAMINOPHEN 5-325 MG TABLET ONE (14:22)
--- NOTE | 2018-12-22 14:40 | PDOC CONSULTATION ---
Consultation Consult Date: 12/22/18 Consult reason:: cholecystitis History of Present Illness Admission Date/PCP: 12/22/18 09:37 NANCY LEMA MD History of Present Illness: PAOLA DELGADO is a 28 year old female who is 35-36 weeks started c/o RUQ pains on her 29th week. It was off and off and usually last 12-24 hrs with associated nausea.Denies fever or chills and pains not necessarily related to fatty food intake. This time her pains are persistent and radiates to the back and started 4 days ago. She had an ultrasound today which showed thickened GB wall with pericholecystic fluid, sludge and small stones at the cystic duct. She is afebrile and normal WBC. Past Medical History Cardiac Medical History: Denies: Congestive Heart Failure, Myocardial Infarction, Hypertension Pulmonary Medical History: Denies: Asthma, Bronchitis, Chronic Obstructive Pulmonary Disease (COPD) GI Medical History: Denies: Gastroesophageal Reflux Disease Musculoskeltal Medical History: Denies: Arthritis Psychiatric Medical History: Denies: Bipolar Disorder, Depression Hematology: Denies: Anemia, Bleeding Tendencies Social History Frequency of Alcohol Use: None Hx Recreational Drug Use: No Drugs: None Family History Family History: Reviewed & Not Pertinent Parental Family History Reviewed: Yes Sibling(s) Family History Reviewed.: No Medication/Allergy Home Medications: Prenat 115/Iron Fum/Folic/Dss [ 19 Tablet] 1 each PO DAILY 09/22/18 Hydroxyzine Pamoate [Vistaril 50 mg Capsule] 50 mg PO PRN PRN 12/20/18 Allergies/Adverse Reactions: No Known Allergies Allergy (Verified 12/22/18 07:04) Review of Systems Constitutional: PRESENT: as per HPI Eyes: PRESENT: other - no visual/hearing changes Cardiovascular: PRESENT: other - no chest pains/cough Genitourinary: PRESENT: other - no dysuria Neurological: PRESENT: other - no seizures Hematologic/Lymphatic: PRESENT: other - no easy bruising Physical Exam Vital Signs: Temp Pulse Resp BP Pulse Ox 97.4 F 63 14 107/68 98 12/22/18 13:06 12/22/18 13:06 12/22/18 13:06 12/22/18 13:06 12/22/18 13:06 Intake & Output 12/21/18 12/22/18 12/23/18 06:59 06:59 06:59 Weight 62.1 kg General appearance: PRESENT: mild distress Head exam: PRESENT: atraumatic Eye exam: PRESENT: conjunctiva pink Mouth exam: PRESENT: moist Neck exam: PRESENT: full ROM Respiratory exam: PRESENT: clear to auscultation erinn Cardiovascular exam: PRESENT: RRR Pulses: PRESENT: normal radial pulses Vascular exam: PRESENT: normal capillary refill GI/Abdominal exam: PRESENT: tenderness - RUQ Rectal exam: PRESENT: deferred Extremities exam: PRESENT: full ROM Musculoskeletal exam: PRESENT: ambulatory Neurological exam: PRESENT: alert, oriented to person, oriented to place, oriented to time, oriented to situation Psychiatric exam: PRESENT: appropriate affect Skin exam: PRESENT: normal color, warm Results Laboratory Results: 12/22/18 07:25 12/22/18 07:25 12/22/18 12/22/18 12/22/18 06:17 07:25 07:25 WBC 5.4 RBC 3.85 Hgb 11.0 L Hct 32.4 L MCV 84 MCH 28.5 MCHC 33.9 RDW 16.5 H Plt Count 227 Seg Neutrophils % 74.1 Lymphocytes % 15.7 Monocytes % 8.5 Eosinophils % 1.0 Basophils % 0.7 Absolute Neutrophils 4.0 Absolute Lymphocytes 0.9 Absolute Monocytes 0.5 Absolute Eosinophils 0.1 Absolute Basophils 0.0 Sodium 135.6 L Potassium 4.1 Chloride 106 Carbon Dioxide 20 L Anion Gap 10 BUN 5 L Creatinine 0.65 Est GFR ( Amer) > 60 Est GFR (Non-Af Amer) > 60 Glucose 75 Calcium 8.1 L Total Bilirubin 2.1 H AST 23 ALT 27 Alkaline Phosphatase 180 H Total Protein 5.9 L Albumin 3.3 L Amylase 72 Lipase 52.3 Urine Color ERICA Urine Appearance CLOUDY Urine pH 6.0 Ur Specific [place] 1.024 Urine Protein 100 H Urine Glucose (UA) NEGATIVE Urine Ketones 80 H Urine Blood NEGATIVE Urine Nitrite NEGATIVE Ur Leukocyte Esterase MODERATE H Urine WBC (Auto) 23 Urine RBC (Auto) 4 Impressions: Abdomen Ultrasound 12/22/18 07:18 IMPRESSION: Gallbladder wall thickening, pericholecystic fluid, and gallbladder sludge. Tiny stones are now evident in the gallbladder neck. Positive sonographic Bañuelos's sign. Findings worrisome for acute cholecystitis. Assessment & Plan - Diagnosis (1) Acute cholecystitis Is this a current diagnosis for this admission?: Yes (2) Cholelithiasis Is this a current diagnosis for this admission?: Yes - Time Time Spent: 30 to 50 Minutes - Inpatient Certification Medical Necessity: Need For IV Fluids, Need for Pain Control, Need for IV Antibiotics, Need for Surgery, Risk of Complication if Not Cared For in Hospital - Plan Summary Plan Summary: 28 yo female 35-36 weeks with acute calculus cholecystitis. Plan 1) IV antibiotics 2) Ok to continue with clears po 3) Will follow. If continues to have pains and develops sepsis may need to be induce prior to cholecystectomy D/W Dr Mccord
[2018-12-22] MEDS: OXYCODONE-ACETAMINOPHEN 5-325 MG TABLET PO PRN (20:22)
[2018-12-23] MEDS: OXYCODONE-ACETAMINOPHEN 5-325 MG TABLET PO PRN ×4 (01:46→22:02)
[2018-12-23] MEDS: PIPERACILLIN SODIUM/TAZOBACTAM 3.375 GM in NORMAL SALINE 100 ML IV SCH ×4 (05:08→21:00)
[2018-12-23] MEDS: RINGERS SOLUTION,LACTATED 1,000 ML IV PRN ×2 (05:08→21:00)
[2018-12-23 07:02] LABS: ABSOLUTE EOSINOPHILS # (AUTO) 0.1 10^3/uL (0.0-0.6); ABSOLUTE LYMPHOCYTES (AUTO) 1.2 10^3/uL (0.5-4.7); ABSOLUTE MONOCYTES (AUTO) 0.4 10^3/uL (0.1-1.4); ABSOLUTE NEUT (AUTO) 2.3 10^3/uL (1.7-8.2); BASOPHILS % (AUTO) 0.7 % (0-2); EOSINOPHILS % (AUTO) 2.8 % (0-6); HEMATOCRIT 29.7 % (36.0-47.0); HEMOGLOBIN 10.3 g/dL (12.0-15.5); LYMPHOCYTES % (AUTO) 29.1 % (13-45); MEAN CORPUSCULAR HEMOGLOBIN 29.2 pg (27.0-33.4); MEAN CORPUSCULAR HGB CONC 34.6 g/dL (32.0-36.0); MEAN CORPUSCULAR VOLUME 84 fl (80-97); MONOCYTES % (AUTO) 9.7 % (3-13); PLATELET COUNT 200 10^3/uL (150-450); RED BLOOD COUNT 3.52 10^6/uL (3.72-5.28); SEGMENTED NEUTROPHILS % (AUTO) 57.7 % (42-78); TOTAL CELLS COUNTED % (AUTO) 100 %
[2018-12-23 07:33] LABS: ALANINE AMINOTRANSFERASE 23 U/L (9-52); ALBUMIN 2.6 g/dL (3.5-5.0); ALKALINE PHOSPHATASE 149 U/L (38-126); ANION GAP 6 (5-19); ASPARTATE AMINO TRANSFERASE 30 U/L (14-36); BILIRUBIN,DIRECT 0.9 mg/dL (0.0-0.4); BILIRUBIN,TOTAL 1.5 mg/dL (0.2-1.3); BLOOD UREA NITROGEN 4 mg/dL (7-20); CALCIUM 7.6 mg/dL (8.4-10.2); CARBON DIOXIDE 22 mmol/L (22-30); CHLORIDE 110 mmol/L (98-107); GLUCOSE 72 mg/dL (75-110); POTASSIUM 4.1 mmol/L (3.6-5.0); SODIUM 137.7 mmol/L (137-145)
--- NOTE | 2018-12-23 09:13 | PDOC PROGRESS REPORT ---
Subjective Progress Note for:: 12/23/18 Reason For Visit: GALLSTONES Physical Exam Vital Signs: Temp Pulse Resp BP Pulse Ox 97.9 F 62 14 94/59 L 98 12/23/18 08:07 12/23/18 08:07 12/23/18 08:07 12/23/18 08:07 12/23/18 08:07 Intake & Output 12/22/18 12/23/18 12/24/18 06:59 06:59 06:59 Intake Total 3240 Balance 3240 Weight 63.6 kg General appearance: PRESENT: no acute distress Neck exam: PRESENT: full ROM Respiratory exam: PRESENT: clear to auscultation erinn Cardiovascular exam: PRESENT: RRR Pulses: PRESENT: normal radial pulses, normal femoral pulses GI/Abdominal exam: PRESENT: other - , tender in ruq iwth + bañuelos's Extremities exam: PRESENT: full ROM Skin exam: PRESENT: dry Results Laboratory Results: 12/23/18 06:36 12/23/18 06:36 12/23/18 12/23/18 06:36 06:36 WBC 4.0 RBC 3.52 L Hgb 10.3 L Hct 29.7 L MCV 84 MCH 29.2 MCHC 34.6 RDW 17.0 H Plt Count 200 Seg Neutrophils % 57.7 Lymphocytes % 29.1 Monocytes % 9.7 Eosinophils % 2.8 Basophils % 0.7 Absolute Neutrophils 2.3 Absolute Lymphocytes 1.2 Absolute Monocytes 0.4 Absolute Eosinophils 0.1 Absolute Basophils 0.0 Sodium 137.7 Potassium 4.1 Chloride 110 H Carbon Dioxide 22 Anion Gap 6 BUN 4 L Creatinine 0.58 Est GFR ( Amer) > 60 Est GFR (Non-Af Amer) > 60 Glucose 72 L Calcium 7.6 L Total Bilirubin 1.5 H AST 30 ALT 23 Alkaline Phosphatase 149 H Total Protein 5.0 L Albumin 2.6 L Impressions: Abdomen Ultrasound 12/22/18 07:18 IMPRESSION: Gallbladder wall thickening, pericholecystic fluid, and gallbladder sludge. Tiny stones are now evident in the gallbladder neck. Positive sonogr aphic Bañuelos's sign. Findings worrisome for acute cholecystitis. Assessment & Plan - Diagnosis (1) Acute cholecystitis Is this a current diagnosis for this admission?: Yes - Plan Summary Plan Summary: pt still with ruq pain, acute cholecystitis noted on ultrasound lft's sl improved this am wbc trending down pt on clear liquids current plan is to wait another week till 37 wks then induce delivery. I spoke iwth pt about ultrasound guided cholecystostomy tube, which will improve her sxs, allow her to eat and cont her till 40wks she is agreeable to the plan and understands she will need the tube in approx 6wks.
--- NOTE | 2018-12-23 09:36 | PDOC PROGRESS REPORT ---
Subjective Progress Note for:: 12/23/18 Subjective:: pt feels better Reason For Visit: GALLSTONES Physical Exam - Physical Exam Vital Signs: Temp Pulse Resp BP Pulse Ox 97.9 F 62 14 94/59 L 98 12/23/18 08:07 12/23/18 08:07 12/23/18 08:07 12/23/18 08:07 12/23/18 08:07 Intake & Output 12/22/18 12/23/18 12/24/18 06:59 06:59 06:59 Intake Total 3240 Balance 3240 Weight 63.6 kg General appearance: PRESENT: no acute distress Respiratory exam: PRESENT: clear to auscultation erinn Result Laboratory Results: 12/23/18 06:36 12/23/18 06:36 12/23/18 12/23/18 06:36 06:36 WBC 4.0 RBC 3.52 L Hgb 10.3 L Hct 29.7 L MCV 84 MCH 29.2 MCHC 34.6 RDW 17.0 H Plt Count 200 Seg Neutrophils % 57.7 Lymphocytes % 29.1 Monocytes % 9.7 Eosinophils % 2.8 Basophils % 0.7 Absolute Neutrophils 2.3 Absolute Lymphocytes 1.2 Absolute Monocytes 0.4 Absolute Eosinophils 0.1 Absolute Basophils 0.0 Sodium 137.7 Potassium 4.1 Chloride 110 H Carbon Dioxide 22 Anion Gap 6 BUN 4 L Creatinine 0.58 Est GFR ( Amer) > 60 Est GFR (Non-Af Amer) > 60 Glucose 72 L Calcium 7.6 L Total Bilirubin 1.5 H AST 30 ALT 23 Alkaline Phosphatase 149 H Total Protein 5.0 L Albumin 2.6 L Impressions: Abdomen Ultrasound 12/22/18 07:18 IMPRESSION: Gallbladder wall thickening, pericholecystic fluid, and gallbladder sludge. Tiny stones are now evident in the gallbladder neck. Positive sonographic Bañuelos's sign. Findings worrisome for acute cholecystitis. Assessment & Plan - Diagnosis (1) Acute cholecystitis Is this a current diagnosis for this admission?: Yes (2) Cholelithiasis Is this a current diagnosis for this admission?: Yes - Plan Summary Plan Summary: agree with plan for tube placement by surgery,
[2018-12-23 11:11] LABS: INTERNATIONAL RATION (INR) 1.07; PROTHROMBIN TIME 14.5 SEC (11.4-15.4)
[2018-12-23 11:28] LABS: PARTIAL THROMBOPLASTIN TIME 25.6 SEC (23.5-35.8)
[2018-12-23] MEDS ORDERED: FENTANYL CITRATE INJ/PF 250 MCG/5 ML AMPULE ONE (12:15)
[2018-12-23] MEDS ORDERED: LIDOCAINE 1% INJ-PF (10 MG/ML) 30 ML SDV ONE (12:15)
[2018-12-23] MEDS ORDERED: MIDAZOLAM 2 MG/2 ML INJ ONE (12:15)
--- NOTE | 2018-12-23 15:03 | RADIOLOGY REPORT (SQ) ---
EXAM DESCRIPTION: CT PERC CHOLECYSTOSTOMY COMPLETED DATE/TIME: 12/23/2018 1:03 pm REASON FOR STUDY: ACUTE CHOLECYSTITIS COMPARISON: Right upper quadrant ultrasound 12/22/2018, 12/06/2018 TECHNIQUE: CT guided percutaneous cholecystostomy performed with conscious sedation. CT Fluoroscopy Time: 4.[address] scanners at this facility use dose modulation, iterative reconstruction, and/or weight based d osing when appropriate to reduce radiation dose to as low as reasonably achievable (ALARA). [facility]: Dose Right [facility]: CareDose [facility]: Dose Right [facility]: Teradose 4D [facility]: [employer] RADIATION DOSE: CT Rad equipment meets quality standard of care and radiation dose reduction techni ques were employed. CTDIvol: 18.7 mGy. DLP: 425 mGy-cm.mGy. FINDINGS: Percutaneous CT cholecystostomy was discussed with the patient, informed consent explainin g the risks and benefits of percutaneous cholecystostomy were reviewed, as well as techniques to limi t the radiation exposure during the procedure. Patient agreed to the procedure. Patient's abdomen p ilia was shielded with lead apron during the study. After obtaining informed consent and explaining the risks and benefits of conscious sedation,the vivienne ent agreed to the procedure. Prior to the procedure, a time out was performed to verify the patient's identity and planned procedure. IV sedation was administered and physician direction by the registered nurse using 1 milligrams of Ve rsed and 75 micrograms of fentanyl, for conscious sedation. Physiologic monitoring was provided befor e, during, and after sedation. The total sedation time was 30 minutes. No complications post sedatio n Documentation face to face time, the performing proceduralist, spent monitoring the patient: 10 richard gene. Very limited Noncontrast CT scanning was performed to localize the percutaneous site for the cholecys tostomy drainage. After sterile skin prep and local lidocaine for skin and deep tissue anesthesia, an 18 gauge needle w as used to access the gallbladder from a right posterior axillary line approach. Prompt return of gr een bile, specimens were sent to the lab for Gram stain culture and sensitivity. A 0.38 guidewire wa s passed through the needle, with the tip coiled in the gallbladder. Tract was dilated with an 8 Luigi nch and 10 Mongolian dilator. A 10 Mongolian locking pigtail catheter was placed with the pigtail loop in the gallbladder. Gallbladder was then aspirated, yielding 50 mL of bile. The catheter was secured t o the patient's skin and left to gravity drainage. There were no immediate complications. Pathology is pending at the time of dictation. IMPRESSION: CT GUIDED PERCUTANEOUS CHOLECYSTOSTOMY PERFORMED WITHOUT IMMEDIATE COMPLICATION. IV CON SCIOUS SEDATION COMMENT: Quality ID 145: Final reports for procedures using fluoroscopy that document radiation exp osure indices, or exposure time and number of fluorographic images (if radiation exposure indices are not available) Patient medication list reviewed: Yes- Quality ID# [id number]:Eligible professional attests to documenting i n the medical record they obtained, updated, or reviewed the patient's current medications.. TECHNICAL DOCUMENTATION: JOB ID: [id number] Quality ID# [id number]: Final reports with documentation of one or more dose reduction techniques (e.g., Aut omated exposure control, adjustment of the mA and/or kV according to patient size, use of iterative r econstruction technique) 2010 [employer]- All Rights Reserved Reading location - IP/workstation name: [email or web address]
[2018-12-24] MEDS: RINGERS SOLUTION,LACTATED 1,000 ML IV PRN (03:57)
[2018-12-24] MEDS: PIPERACILLIN SODIUM/TAZOBACTAM 3.375 GM in NORMAL SALINE 100 ML IV SCH ×2 (03:58→09:41)
[2018-12-24] MEDS: OXYCODONE-ACETAMINOPHEN 5-325 MG TABLET PO PRN ×2 (04:00→09:39)
--- NOTE | 2018-12-24 08:32 | PDOC PROGRESS REPORT ---
Subjective Progress Note for:: 12/24/18 Reason For Visit: CHOLECYSTITIS, CHOLELITHIASIS Physical Exam Vital Signs: Temp Pulse Resp BP Pulse Ox 98.0 F 67 16 88/57 L 97 12/24/18 03:45 12/24/18 03:45 12/24/18 03:45 12/24/18 03:45 12/24/18 03:45 Intake & Output 12/23/18 12/24/18 12/25/18 06:59 06:59 06:59 Intake Total 3340 3419 Output Total 200 Balance 3340 3219 Weight 63.6 kg 63 kg GI/Abdominal exam: PRESENT: other - abd less tender in ruq. previous pain has resolved after cholecystostomy Results Laboratory Results: 12/23/18 06:36 12/23/18 06:36 Impressions: Abdomen Ultrasound 12/22/18 07:18 IMPRESSION: Gallbladder wall thickening, pericholecystic fluid, and gallbladder sludge. Tiny stones are now evident in the gallbladder neck. Positive sonographic Bañuelos's sign. Findings worrisome for acute cholecystitis. Cholecystostomy 12/23/18 00:00 IMPRESSION: CT GUIDED PERCUTANEOUS CHOLECYSTOSTOMY PERFORMED WITHOUT IMMEDIATE COMPLICATION. IV CONSCIOUS SEDATION Assessment & Plan - Diagnosis (1) Acute cholecystitis Is this a current diagnosis for this admission?: Yes - Plan Summary Plan Summary: pt is s/p cholecystostomy tube yesterday did very well after placement pain resolved after tube placed and she was able to travon reg diet pt will need tube in place for 3-4 wks and should have a lap kain after will arrange for f/u in surgery clinic about 1 wk after discharge please reconsult surgery if necessary.
--- NOTE | 2018-12-24 09:30 | PDOC PROGRESS REPORT ---
Addendum entered and electronically signed by CATY CHAVEZ CNM 12/24/18 09:33: Subjective-OB Progress Note for:: 12/24/18 Subjective: Complaining of ucs with pain scale 5-6/10. Physical Exam (OB) Vital Signs: Temp Pulse Resp BP Pulse Ox 97.5 F 65 16 107/80 98 12/24/18 08:38 12/24/18 08:38 12/24/18 08:38 12/24/18 08:38 12/24/18 08:38 Intake & Output 12/23/18 12/24/18 12/25/18 06:59 06:59 06:59 Intake Total 3340 3419 Output Total 200 Balance 3340 3219 Weight 63.6 kg 63 kg - General Note:: UCs q 4-9 minutes on nst this am. - PIH/Pre-Eclampsia Clonus: Negative Headache: Absent Epigastric Pain: No Visual Changes: No - Abdomen Hernia Present: No Original Note: Subjective-OB Progress Note for:: 12/24/18 Physical Exam (OB) Vital Signs: Temp Pulse Resp BP Pulse Ox 97.5 F 65 16 107/80 98 12/24/18 08:38 12/24/18 08:38 12/24/18 08:38 12/24/18 08:38 12/24/18 08:38 Intake & Output 12/23/18 12/24/18 12/25/18 06:59 06:59 06:59 Intake Total 3340 3419 Output Total 200 Balance 3340 3219 Weight 63.6 kg 63 kg - PIH/Pre-Eclampsia Clonus: Negative Headache: Absent Epigastric Pain: No Visual Changes: No - Abdomen Hernia Present: No Bowel Sounds: Normoactive Flatus Presence: Present Stool: No Abdomen Note: Gravid. 36 wks . - Genitourinary Speculum exam: Cervix closed Lochia: None Bimanuel exam: Normal Objective-Diagnostic Laboratory: 12/23/18 06:36 12/23/18 06:36
[2018-12-24] MEDS ORDERED: RINGERS SOLUTION,LACTATED 500 ML IV ONE (10:30)
[2018-12-24 10:39] LABS: ABSOLUTE EOSINOPHILS # (AUTO) 0.1 10^3/uL (0.0-0.6); ABSOLUTE LYMPHOCYTES (AUTO) 1.2 10^3/uL (0.5-4.7); ABSOLUTE MONOCYTES (AUTO) 0.5 10^3/uL (0.1-1.4); ABSOLUTE NEUT (AUTO) 3.6 10^3/uL (1.7-8.2); BASOPHILS % (AUTO) 0.2 % (0-2); EOSINOPHILS % (AUTO) 2.2 % (0-6); HEMATOCRIT 32.4 % (36.0-47.0); LYMPHOCYTES % (AUTO) 21.7 % (13-45); MEAN CORPUSCULAR HEMOGLOBIN 28.9 pg (27.0-33.4); MEAN CORPUSCULAR HGB CONC 34.1 g/dL (32.0-36.0); MEAN CORPUSCULAR VOLUME 85 fl (80-97); MONOCYTES % (AUTO) 8.7 % (3-13); PLATELET COUNT 207 10^3/uL (150-450); RED BLOOD COUNT 3.82 10^6/uL (3.72-5.28); SEGMENTED NEUTROPHILS % (AUTO) 67.2 % (42-78); TOTAL CELLS COUNTED % (AUTO) 100 %; WHITE BLOOD COUNT 5.4 10^3/uL (4.0-10.5)
[2018-12-24 10:53] LABS: URIC ACID 2.4 mg/dL (2.5-6.2)
--- NOTE | 2018-12-24 12:04 | PDOC DISCHARGE SUMMARY ---
Final Diagnosis Discharge Date: 12/24/18 - Final Diagnosis (1) Is this a current diagnosis for this admission?: Yes (2) Acute cholecystitis Is this a current diagnosis for this admission?: Yes (3) Cholelithiasis Is this a current diagnosis for this admission?: Yes Discharge Data - Discharge Medication Home Medications: Prenat 115/Iron Fum/Folic/Dss [ 19 Tablet] 1 each PO DAILY 09/22/18 Hydroxyzine Pamoate [Vistaril 50 mg Capsule] 50 mg PO PRN PRN 12/20/18 Gestational Age: 36+ wks Reason(s) for Admission: Obstetric Complications Procedures: Ultrasound - Diagnosis Test Laboratory: Temp Pulse Resp BP Pulse Ox 97.5 F 65 16 107/80 98 12/24/18 08:38 12/24/18 08:38 12/24/18 08:38 12/24/18 08:38 12/24/18 08:38 12/22/18 12/22/18 12/23/18 06:17 07:25 06:36 RBC 3.85 3.52 L Hgb 11.0 L 10.3 L Hct 32.4 L 29.7 L Urine Opiates Screen NEGATIVE 12/24/18 10:09 RBC 3.82 Hgb 11.0 L Hct 32.4 L Urine Opiates Screen - Discharge information/Instructions Discharge Activity: Activity As Tolerated, Balance Activity w/Rest, Slowly Increase Activity Discharge Diet: As Tolerated Disposition: HOME, SELF-CARE Follow up with: [facility] in: 1, Weeks
[2018-12-24 12:16] VITALS: BP 98/65
== END 2018-12-24 14:07 | disposition home or self-care (01) | DRG 832 ==
LOC: LC 06:50 → INTOOBSV 09:37 → LR 09:37 → OBSVTOIN 10:00 → 2S 13:07
PROVIDERS: ADMIT Student in an Organized Health Care Education/Training Program; ATTEND Student in an Organized Health Care Education/Training Program
PROC: 0F9430Z Drainage of Gallbladder with Drainage Device, Percutaneous Approach (ICD-10-PCS; principal; 2018-12-23)
DX: O99.613 Diseases of the digestive system complicating pregnancy, third trimester (principal); K80.00 Calculus of gallbladder with acute cholecystitis without obstruction; Z3A.36 36 weeks gestation of pregnancy
CPT/HCPCS: 36415; 47490; 59025; 76705; 80053; 80307; 81001; 82150; 83615; 83690; 84550; 85025; 85610; 85730; 87070; 87075; 87205; 93976; C1729; C1769; C1894; J2250; J2300; J2405; J2543; J3010; J3490; J7120

== ENCOUNTER 2019-01-01 18:58 | Emergency (ER) | payer MEDICAID ==
--- NOTE | 2019-01-01 19:56 | ER Document Report ---
ED General - General Chief Complaint: Drainage Stated Complaint: GALLBLADDER PAIN Time Seen by Provider: 01/01/19 19:27 Primary Care Provider: NANCY LEMA MD [Primary Care Provider] - Follow up as needed Notes: Patient is a 28-year-old female currently 37 weeks , , has a history of cholecystitis, had a cholecystotomy tube placed approximately 1 week ago for treatment of acute cholecystitis. Patient states while playing with her son today she leaned forward and felt the tube pulled out significantly and that has since stopped draining bile into the cholecystotomy bag. She denies any symptoms other than leakage of bile contents from the percutaneous drain site. She denies any pain. No nausea, vomiting or fever. Nothing is been noted to improve or worsen her symptoms. Has not contacted her OB or surgeon regarding today's concerns. No history of similar issues recently. TRAVEL OUTSIDE OF THE [place] IN LAST 30 DAYS: No - Related Data Allergies/Adverse Reactions: No Known Allergies Allergy (Verified 01/01/19 19:00) Past Medical History - General Information source: Patient - Social History Smoking Status: Never Smoker Chew tobacco use (# tins/day): No Frequency of alcohol use: None Drug Abuse: None Lives with: Spouse/Significant other Family History: Reviewed & Not Pertinent Patient has suicidal ideation: No Patient has homicidal ideation: No - Past Medical History Cardiac Medical History: Denies: Hx Congestive Heart Failure, Hx Heart Attack, Hx Hypertension Pulmonary Medical History: Denies: Hx Asthma, Hx Bronchitis, Hx COPD Renal/ Medical History: Denies: Hx Peritoneal Dialysis GI Medical History: Denies: Hx Gastroesophageal Reflux Disease, Hx Ulcer Musculoskeletal Medical History: Denies Hx Arthritis Skin Medical History: Reports Hx Cellulitis - Mastitis Psychiatric Medical History: Denies: Hx Bipolar Disorder, Hx Depression, Hx Schizophrenia - Immunizations Immunizations up to date: Yes Hx Diphtheria, Pertussis, Tetanus Vaccination: Yes Review of Systems - Review of Systems Notes: Constitutional: Negative for fever. HENT: Negative for sore throat. Eyes: Negative for visual changes. Cardiovascular: Negative for chest pain. Respiratory: Negative for shortness of breath. Gastrointestinal: Negative for abdominal pain, vomiting or diarrhea. Genitourinary: Negative for dysuria. Musculoskeletal: Negative for back pain. Skin: Negative for rash. Neurological: Negative for headaches, weakness or numbness. 10 point ROS negative except as marked above and in HPI. Physical Exam - Vital signs Vitals: Temp Pulse Resp BP Pulse Ox 98.4 F 73 16 104/69 99 01/01/19 19:25 01/01/19 19:25 01/01/19 19:25 01/01/19 19:25 01/01/19 19:25 Interpretation: Normal Notes: PHYSICAL EXAMINATION: GENERAL: Well-appearing, well-nourished and in no acute distress. HEAD: Atraumatic, normocephalic. EYES: Pupils equal round and reactive to light, extraocular movements intact, sclera anicteric, conjunctiva are normal. ENT: nares patent, oropharynx clear without exudates. Moist mucous membranes. NECK: Normal range of motion, supple without lymphadenopathy LUNGS: Breath sounds clear to auscultation bilaterally and equal. No wheezes rales or rhonchi. HEART: Regular rate and rhythm without murmurs ABDOMEN: Soft, gravid uterus, nontender, normoactive bowel sounds. No guarding, no rebound. No masses appreciated. EXTREMITIES: Normal range of motion, no pitting or edema. No cyanosis. NEUROLOGICAL: No focal neurological deficits. Moves all extremities spontaneously and on command. PSYCH: Normal mood, normal affect. SKIN: Warm, Dry, normal turgor, cholecystotomy line in place in the right upper quadrant without any drainage and the cholecystostomy bag Course - Re-evaluation Re-evalutation: 01/01/19 19:55 Patient presents with complaints of her cholecystotomy tube being pulled back, having bile drainage around the dressing site and no bile draining into the drain site for the past 4-5 hours. She has no right upper quadrant abdominal pain, denies any additional symptoms. Does not clinically have any ongoing acute cholecystitis of which she was diagnosed 10 days ago. She is currently 37 weeks . I did discuss with the interventional help desk assistant manager combination who did speak directly to the interventional radiologist. We did review that the cholecystotomy tube likely does not need to be replaced given that the patient does not clinically have cholecystitis at this time. Will obtain a right upper quadrant ultrasound, labs and reassess. Will discuss with surgery. - Vital Signs Vital signs: Temp Pulse Resp BP Pulse Ox 98.4 F 73 16 104/69 99 01/01/19 19:25 01/01/19 19:25 01/01/19 19:25 01/01/19 19:25 01/01/19 19:25 - Laboratory Result Diagrams: 01/01/19 19:50 01/01/19 19:50 Laboratory results interpreted by me: 01/01/19 01/01/19 19:50 19:50 Hgb 11.9 L Hct 34.5 L RDW 16.2 H Sodium 135.9 L Carbon Dioxide 20 L Glucose 74 L Calcium 8.2 L AST 40 H Alkaline Phosphatase 193 H Total Protein 6.1 L Albumin 3.4 L - Diagnostic Test Radiology reviewed: Reports reviewed Discharge - Discharge Clinical Impression: Cholelithiasis Qualifiers: Cholelithiasis location: gallbladder Cholecystitis presence: without cholecystitis Biliary obstruction: without biliary obstruction Qualified Code(s): K80.20 - Calculus of gallbladder without cholecystitis without obstruction Cholecystostomy tube dysfunction Qualifiers: Encounter type: initial encounter Qualified Code(s): T85.518A - Breakdown (mechanical) of other gastrointestinal prosthetic devices, implants and grafts, initial encounter Condition: Good Disposition: HOME, SELF-CARE Additional Instructions: Your tube has been removed. Thankfully you do not have any ongoing evidence of cholecystitis. Your labs are also normal today. I did discuss your case with our surgeon on-call Dr. Butcher. He has asked that you please follow-up in clinic for definitive treatment via removal of your gallbladder. As we discussed today please do not eat any fatty foods. If you develop recurrent upper abdominal pain, nausea, vomiting, fever of greater than 100.4 F, or have any other symptoms that are worrisome to you please return to the emergency department immediately. Please also return if you develop increasing redness or swelling around the site where the cholecystotomy tube was placed. Referrals: NANCY LEMA MD [Primary Care Provider] - Follow up in 3-5 days SILVESTRE PERALES MD [ACTIVE STAFF] - Follow up as needed (Post )
[2019-01-01 20:05] LABS: ABSOLUTE EOSINOPHILS # (AUTO) 0.1 10^3/uL (0.0-0.6); ABSOLUTE LYMPHOCYTES (AUTO) 1.2 10^3/uL (0.5-4.7); ABSOLUTE MONOCYTES (AUTO) 0.5 10^3/uL (0.1-1.4); ABSOLUTE NEUT (AUTO) 4.2 10^3/uL (1.7-8.2); BASOPHILS % (AUTO) 0.3 % (0-2); EOSINOPHILS % (AUTO) 1.7 % (0-6); HEMATOCRIT 34.5 % (36.0-47.0); HEMOGLOBIN 11.9 g/dL (12.0-15.5); LYMPHOCYTES % (AUTO) 20.3 % (13-45); MEAN CORPUSCULAR HEMOGLOBIN 28.7 pg (27.0-33.4); MEAN CORPUSCULAR HGB CONC 34.6 g/dL (32.0-36.0); MEAN CORPUSCULAR VOLUME 83 fl (80-97); PLATELET COUNT 261 10^3/uL (150-450); RED BLOOD COUNT 4.15 10^6/uL (3.72-5.28); RED CELL DISTRIBUTION WIDTH 16.2 % (11.5-14.0); SEGMENTED NEUTROPHILS % (AUTO) 68.7 % (42-78); TOTAL CELLS COUNTED % (AUTO) 100 %
[2019-01-01 20:22] LABS: ALANINE AMINOTRANSFERASE 45 U/L (9-52); ALBUMIN 3.4 g/dL (3.5-5.0); ALKALINE PHOSPHATASE 193 U/L (38-126); ANION GAP 9 (5-19); ASPARTATE AMINO TRANSFERASE 40 U/L (14-36); BILIRUBIN,DIRECT 0.3 mg/dL (0.0-0.4); BILIRUBIN,TOTAL 0.8 mg/dL (0.2-1.3); BLOOD UREA NITROGEN 12 mg/dL (7-20); CALCIUM 8.2 mg/dL (8.4-10.2); CARBON DIOXIDE 20 mmol/L (22-30); CHLORIDE 107 mmol/L (98-107); GLUCOSE 74 mg/dL (75-110); LIPASE 175.9 U/L (23-300); POTASSIUM 4.1 mmol/L (3.6-5.0); SODIUM 135.9 mmol/L (137-145); TOTAL PROTEIN 6.1 g/dL (6.3-8.2)
--- NOTE | 2019-01-01 20:39 | RADIOLOGY REPORT (SQ) ---
US ABDOMEN LIMITED HISTORY: Right upper quadrant pain. COMPARISON: None. TECHNIQUE: Grayscale and color Doppler imaging of the right upper quadrant was performed. FINDINGS: The liver has normal echotexture without focal lesion identified. The main portal vein has normal hepatopetal flow. Shadowing gallstones are seen. No pericholecystic fluid or gallbladder wall thickening. The common bile duct measures 5 mm in diameter. The pancreas is not visualized due to overlying bowel gas. No hydronephrosis or shadowing renal stones are identified. The right kidney measures 9.1 cm in length. The visualized portions of the IVC and aorta are patent. IMPRESSION: Cholelithiasis without evidence of acute cholecystitis.
[2019-01-01 21:28] VITALS: BP 103/77
== END 2019-01-01 21:29 | disposition home or self-care (01) ==
LOC: ER 18:58
DX: O99.613 Diseases of the digestive system complicating pregnancy, third trimester (principal); K80.20 Calculus of gallbladder without cholecystitis without obstruction; T85.518A Breakdown (mechanical) of other gastrointestinal prosthetic devices, implants and grafts, initial encounter; X58.XXXA Exposure to other specified factors, initial encounter; O26.613 Liver and biliary tract disorders in pregnancy, third trimester; K83.9 Disease of biliary tract, unspecified; Z3A.37 37 weeks gestation of pregnancy
CPT/HCPCS: 36415; 76705; 80053; 83690; 85025; 99283

== ENCOUNTER 2019-01-10 23:08 | Inpatient (IN) | payer MEDICAID ==
[2019-01-11] LABS: APPEARANCE,URINE CLOUDY; BILIRUBIN,URINE NEGATIVE (NEGATIVE); GLUCOSE, URINE NEGATIVE (NEGATIVE); KETONES,URINE 80 mg/dL (NEGATIVE); LEUKOCYTE ESTERASE,URINE MODERATE (NEGATIVE); NITRITE,URINE NEGATIVE (NEGATIVE); PROTEIN,URINE 100 mg/dL (NEGATIVE); URINE SPECIFIC GRAVITY 1.025
[2019-01-11 00:01] LABS: COLOR,URINE DARK YELLOW
[2019-01-11 00:16] LABS: URINE AMPHETAMINES SCREEN NEGATIVE; URINE BARBITURATES SCREEN NEGATIVE; URINE BENZODIAZEPINES SCREEN NEGATIVE; URINE COCAINE SCREEN NEGATIVE; URINE MARIJUANA (THC) SCREEN NEGATIVE; URINE METHADONE SCREEN NEGATIVE; URINE PHENCYCLIDINE SCREEN NEGATIVE
[2019-01-11] MEDS ORDERED: PROMETHAZINE HCL INJ 25 MG/1 ML VIAL IV ONE ×2 (00:35→01:15)
[2019-01-11] MEDS: RINGERS SOLUTION,LACTATED 1,000 ML IV PRN ×2 (01:06→02:55)
[2019-01-11] MEDS ORDERED: PROMETHAZINE HCL INJ 25 MG/1 ML VIAL ONE (01:11)
[2019-01-11] MEDS ORDERED: NALBUPHINE HCL INJ 10 MG/1 ML AMPULE ONE (01:11)
[2019-01-11] MEDS ORDERED: NALBUPHINE HCL INJ 10 MG/1 ML AMPULE INJ ONE (01:15)
[2019-01-11 03:31] LABS: ABSOLUTE LYMPHOCYTES (AUTO) 1.2 10^3/uL (0.5-4.7); ABSOLUTE MONOCYTES (AUTO) 0.4 10^3/uL (0.1-1.4); ABSOLUTE NEUT (AUTO) 7.3 10^3/uL (1.7-8.2); BASOPHILS % (AUTO) 0.3 % (0-2); EOSINOPHILS % (AUTO) 0.2 % (0-6); HEMOGLOBIN 11.5 g/dL (12.0-15.5); LYMPHOCYTES % (AUTO) 13.6 % (13-45); MEAN CORPUSCULAR HEMOGLOBIN 28.1 pg (27.0-33.4); MEAN CORPUSCULAR HGB CONC 33.9 g/dL (32.0-36.0); MEAN CORPUSCULAR VOLUME 83 fl (80-97); MONOCYTES % (AUTO) 4.8 % (3-13); PLATELET COUNT 246 10^3/uL (150-450); RED CELL DISTRIBUTION WIDTH 16.5 % (11.5-14.0); SEGMENTED NEUTROPHILS % (AUTO) 81.1 % (42-78); TOTAL CELLS COUNTED % (AUTO) 100 %
[2019-01-11] MEDS ORDERED: LIDOCAINE 1% INJ-PF (10 MG/ML) 30 ML SDV ONE (07:15)
[2019-01-11] MEDS ORDERED: OXYTOCIN/NORMAL SALINE 20 UNIT/1,000 ML RTUINJ ONE (07:15)
[2019-01-11] MEDS ORDERED: MISOPROSTOL 0.2 MG TABLET ONE (07:15)
[2019-01-11] MEDS ORDERED: FENTANYL/BUPIVACAINE/NS/PF 300 MCG/150 ML RTUINJ EPI ONE (07:52)
[2019-01-11] MEDS ORDERED: EPHEDRINE SULFATE INJ 50 MG/1 ML AMPULE ONE (07:52)
[2019-01-11] MEDS ORDERED: BUPIVACAINE HCL 0.25 % INJ/PF (2.5 MG/1 ML) 30 ML VIAL ONE (07:52)
[2019-01-11] MEDS ORDERED: LIDOCAINE 1.5%/EPINEPHRINE INJ-PF 30 ML SDV ONE (08:23)
--- NOTE | 2019-01-11 08:27 | Admission Physical ---
Datetime Report Generated by CPN: 01/11/2019 08:27 CURRENT ADMISSION Chief Complaint: Uterine Contractions; Maternal Discomfort Chief Complaint Other: gallstones Indication for Induction: Not Applicable Admit Impression : Term, Intrauterine ; Active Labor Admit Impression- Other: Pt evaluated by Dr Mccord and was noted to be 5 cm. Admit Plan: Admit to Unit Admit Plan- Other: begin abx and surgical consult ALLERGIES Medication Allergies: No Medication Allergies: No Known Allergies (01/11/2019) Latex: No Latex Allergies Food Allergies: None Environmental Allergies: None OBSTETRICAL HISTORY EDC: 01/20/2019 00:00 : 2 Para: 1 Term: 1 : 0 SAB: 0 IAB: 0 Ectopic: 0 Livin Cesareans: 0 VBACs: 0 Multiple Births: 0 Gestational Diabetes: No Rh Sensitization: No Incompetent Cervix: No COLT: No Infertility: No ART Treatment: No Uterine Anomaly: No IUGR: No Hx Previous C/S: No Macrosomia: No Hx Loss/Stillborn: No PIH: No Hx : No Placenta Previa/Abruption: No Depression/PP Depression: No PTL/PROM: No Post Hemorrhage: No Current Procedures: Ultrasound; NST Obstetrical History Comments: Pt states last week was admitted in [place] for same pain was told she was PreE with HELLP for elevated liver panel, after course BMZ and Mag treament per pt was told her labs went back to normal and was discharged and told she could return to [place]. Pt was seen in the A office on 12/03 after returning to [facility] on and was told she did not need further follow up at this time-see notes in G1 - 2016 @ 38 weeks w/ epidural, 7lb 7oz Male; per pt record - depression w/ first G2 - Current SEE RECORDS Alcohol: No Marijuana : No Cocaine: No Other Illicit Drugs: No Cigarettes: Never Smoker. 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 Surgery: No Heart Disease: No Hosp/Surgery: Yes Autoimmune Disorder: No Anesthetic Complications: No Kidney Disease: No Abnormal Pap Smear: Yes Neuro/Epilepsy: No Psychiatric Disorders: No Other Medical Diseases: No Hepatitis/Liver Disease: No Significant Family History: No Varicosities/Phlebitis: No Trauma/Violence : No Thyroid Dysfunction: No Medical History Comments: 12/2018-Drainage tube inserted into gallbladder, removed 01/01/19 Abnormal pap smear 2007 and 2009 - LEEP procedure INFECTIOUS HISTORY Gonorrhea: No Genital Herpes: No Chlamydia: No Tuberculosis: No Syphilis: No Hepatitis: No HIV/AIDS Exposure: No Rash or Viral Illness: No HPV: No PHYSICAL EXAM General: Normal HEENT: Normal Neurologic: Normal Thyroid: Normal Heart: Normal Lungs: Normal Breast: Normal Back: Normal Abdomen: Normal Genitourinary Exam: Normal Extremities: Normal DTRs: Normal Pelvic Type: Adequate Physical Exam Comments: [place] sign Vital Signs: Reviewed; Within Normal Limits FETUS A EGA: 38.5 Monitoring: External US FHR- Baseline: 140 Variability: Moderate 6-25bpm Accelerations: 15X15 Decelerations: None FHR Category: Category I Presentation: Vertex Admit Comment: at 38.5 wks w/ Hx of Gallstones this requiring a stent. Pt being bolused for an epidural. GBS negative. Plan AROM once pt is comfortable. Dr Alicea is the attending MD and aware of pt status PLANS FOR LABOR AND DELIVERY Labor and Delivery: None Pain Management: Epidural Feeding Preference: Breast Benefit of Breast Feed Discussed: Yes Circumcision: Yes INFORMED CONSENT Assignment: Salima Alicea MD Signature: with User ID: Von : with User ID: Von
[2019-01-11 09:59] LABS: ALANINE AMINOTRANSFERASE 29 U/L (9-52); ALBUMIN 3.1 g/dL (3.5-5.0); ALKALINE PHOSPHATASE 202 U/L (38-126); AMYLASE 82 U/L (30-110); ANION GAP 6 (5-19); ASPARTATE AMINO TRANSFERASE 23 U/L (14-36); BILIRUBIN,DIRECT 0.1 mg/dL (0.0-0.4); BILIRUBIN,TOTAL 0.5 mg/dL (0.2-1.3); BLOOD UREA NITROGEN 8 mg/dL (7-20); CALCIUM 8.8 mg/dL (8.4-10.2); CARBON DIOXIDE 23 mmol/L (22-30); CHLORIDE 108 mmol/L (98-107); GLUCOSE 84 mg/dL (75-110); POTASSIUM 4.3 mmol/L (3.6-5.0); SODIUM 136.9 mmol/L (137-145); TOTAL PROTEIN 5.9 g/dL (6.3-8.2)
[2019-01-11] MEDS ORDERED: OXYTOCIN/NORMAL SALINE 20 UNIT/1,000 ML RTUINJ IV PRN ×2 (14:06→18:31)
--- NOTE | 2019-01-11 15:56 | L&D Progress Notes ---
PROGRESS NOTES Datetime Report Generated by CPN: 01/11/2019 15:56 PROGRESS NOTE Impression: Normal Progression of Labor Procedures: Artificial ROM; Sterile Vag Exam Plan: Continue Present Management; Augmentation; Anticipate Vaginal Delivery Vital Signs : Reviewed; Within Normal Limits Comment: Epidural in place and pt is comfortable. Pitocin infusing to augment labor. VE 7/70/-1, AROM w/ clear, bloodtinged fluid. Position changes encouarged. Anticipte . Attending MD is Dr Alicea VAGINAL EXAM Dilatation: 7 Effacement: 70 Station: -1 Contractions: q2-3 LAST VAGINAL EXAM-NURSING Dilitation: 7.0 Dilitation: 5.5 Dilitation: 6.0 Dilitation: 3.5 Dilitation: 3.5 Dilitation: 3.0 Dilitation: 2.0 Dilitation: 2.0 Dilitation: 2.0 Dilitation: 1.5 Dilitation: 1.5 Dilitation: 1.5 Dilitation: 1.5 Effacement: 80 Effacement: 70 Effacement: 70 Effacement: 80 Effacement: 70 Effacement: thick Effacement: 70 Effacement: 70 Effacement: thick Effacement: thick Effacement: thick Effacement: thick Effacement: thick Station: -2 Station: -1 Station: -1 Station: -1 Station: -1 Station: -2 Station: -1 Station: -1 Station: high Station: high Station: high Station: -3 Station: ballatable Contractions: Irregular ctx pattern Contractions: Irregular ctx pattern Contractions: TOCO changed Contractions: applied Contractions: no uc noted patient states not having UC since receiving terb Contractions: pt states she feels UC spaced out but increase in intensity Contractions: applied Contractions: applied MEMBRANES Membranes: Ruptured Amniotic Fluid Color: Bloody FETUS A FHR - Baseline: 145 Monitoring: External US Variability: Moderate 6-25bpm Accelerations: 15X15 Decelerations: None FHR Category: Category I : 36.0 Presentation: Vertex SIGNATURE SIGNATURE: ,[id number] SIGNATURE: ,[id number] SIGNATURE: ,[id number] SIGNATURE: [id number] SIGNATURE: 14,[id number] SIGNATURE: 14,[id number] SIGNATURE: 14,[id number] SIGNATURE: 14,[id number] Assignment: Salima Alicea MD Signature: with User ID: Von : with User ID: Von
[2019-01-11] MEDS ORDERED: DIPHENHYDRAMINE HCL 25 MG CAPSULE PO PRN (18:31)
[2019-01-11] MEDS ORDERED: ACETAMINOPHEN WITH CODEINE #3 TABLET PO PRN (18:31)
[2019-01-11] MEDS ORDERED: DIPH/PERTUSS(ACELL)/TETANUS VAC/PF 0.5 ML SYR (>=10YO) IM PRN (18:31)
[2019-01-11] MEDS ORDERED: GLYCERIN/WITCH HAZEL LEAF 1 EACH MED..PAD TP PRN (18:31)
[2019-01-11] MEDS ORDERED: ZOLPIDEM TARTRATE 5 MG TABLET PO PRN (18:31)
[2019-01-11] MEDS ORDERED: DIBUCAINE 1% OINTMENT 28 GM TP PRN (18:31)
[2019-01-11] MEDS ORDERED: NA PHOS,M-B/NA PHOS,DI-BA (ADULT) 133 ML ENEMA PR PRN (18:31)
[2019-01-11] MEDS ORDERED: PROMETHAZINE HCL 25 MG TABLET PO PRN (18:31)
[2019-01-11] MEDS ORDERED: PROMETHAZINE HCL 25 MG SUPP.RECT PR PRN (18:31)
[2019-01-11] MEDS ORDERED: MAGNESIUM HYDROXIDE SUSP 30 ML UDCUP PO PRN (18:31)
[2019-01-11] MEDS ORDERED: ACETAMINOPHEN 325 MG TABLET PO PRN (18:31)
[2019-01-11] MEDS ORDERED: PROMETHAZINE HCL INJ 25 MG/1 ML VIAL IV PRN (18:31)
[2019-01-11] MEDS ORDERED: BENZOCAINE/MENTHOL AEROSOL SPRAY 56 ML TOP PRN (18:31)
[2019-01-11] MEDS ORDERED: MEASLES,MUMPS&RUBELLA VACC/PF 0.5 ML VIAL SUBCUT PRN (18:31)
[2019-01-11] MEDS ORDERED: PSEUDOEPHEDRINE HCL 30 MG TABLET PO PRN (18:31)
[2019-01-11] MEDS ORDERED: IBUPROFEN 800 MG TABLET ONE (19:17)
--- NOTE | 2019-01-11 20:10 | Delivery Summary ---
Del Sum A-C Datetime Report Generated by CPN: 01/11/2019 20:09 DELIVERY PERSONNEL DELIVERY PERSONNEL: [id number] Delivery Doctor:: Salima Alicea MD Anesthesiologist:: Dennis Labor and Delivery Nurse:: Nicolette Correa RN Labor and Delivery Nurse:: Mariah Jenkins RN [employer] Technician/DIE WELDER: Neisha Bruce, DIE WELDER II MATERNAL INFORMATION Delivery Anesthesia: Epidural Medications After Delivery: Pitocin Bolus-Please Comment; Pitocin Drip 20 Units/1000ml NSS Maternal Complications: None Other Maternal Complications: Cholecystitis s/p perc drain Provider Comments: VMI delivered in JUNIOR presentation with tight nuchal cord delivered through. Shoulders and body delivered without difficulty. cord doubly clamped and cut and infant to maternal abdomen for NRP. Placenta delivered intact spontaneously. FF at U. No perineal lacerations. Good hemostasis. mother and baby stable upon provider leaving the room. LABOR SUMMARY EDC: 01/20/2019 00:00 No. Babies in Womb: 1 Attempted: No Labor Anesthesia: Epidural LABOR INFORMATION Reason for Induction: Not Applicable Onset of Labor: 01/11/2019 00:30 Complete Dilatation: 01/11/2019 18:04 Oxytocin: Augmentation Group B Beta Strep: Negative Antibiotics # of Doses: 0 Antibiotics Time of Last Dose: n/a Name of Antibiotic Given: n/a Steroids Given: None Reason Steroids Not Administered: Not Applicable MEMBRANES Membranes Rupture Method: Artificial Rupture of Membranes: 01/11/2019 15:48 Length of Rupture (hr): 2.48 Amniotic Fluid Color: BLOOD TINGED Amniotic Fluid Amount: Small Amniotic Fluid Odor: Normal STAGES OF LABOR Stage 1 hr: 17 Stage 1 min: 34 Stage 2 hr: 0 Stage 2 min: 13 Stage 3 hr: 0 Stage 3 min: 2 Total Time in Labor hr: 17 Total Time in Labor min: 49 VAGINAL DELIVERY Episiotomy: None Laceration #1: None Laceration Extension #1: N/A Laceration Repair: Not Applicable Sponge Count Correct: N/A Sharps Count Correct: N/A CSECTION DELIVERY Primary Indication: N/A Secondary Indication: N/A CSection Incidence: N/A Labor: N/A Elective: N/A CSection Incision: N/A BABY A INFORMATION Infant Delivery Date/Time: 01/11/2019 18:17 Method of Delivery: Vaginal Born in Route : No : N/A Forceps: N/A Vacuum Extraction: N/A Shoulder Dystocia : No PRESENTATION/POSITION BABY A Presentation: Cephalic Cephalic Presentation: Vertex Vertex Position: Left Occipital Anterior Breech Presentation: N/A PLACENTA INFORMATION BABY A Placenta Delivery Time : 01/11/2019 18:19 Placenta Method of Delivery: Spontaneous Placenta Status: Delivered SCORES BABY A Heart Rate 1 min: >100 bpm Resp Effort 1 min: Good Cry Reflex Irritability 1 min: Cough or Sneeze or Pulls Away Muscle Tone 1 min: Active Motion Color 1 min: Blue/Pale Resuscitation Effort 1 min: Tactile Stimulation SCORE 1 MIN: 8 Heart Rate 5 min: >100 bpm Resp Effort 5 min: Good Cry Reflex Irritability 5 min: Cough or Sneeze or Pulls Away Muscle Tone 5 min: Active Motion Color 5 min: Body [place], Extremities Blue Resuscitation Effort 5 min: Tactile Stimulation SCORE 5 MIN: 9 INFANT INFORMATION BABY A Gestational Age at Delivery: 38.5 Gestational Status: Early Term- 37- 38.6 Weeks Outcome : Liveborn Infant Condition : Stable Sex: Male IDENTIFICATION BABY A Verification Date/Time: 01/11/2019 18:56 ID Band Number: [id number] Mother's Name Verified: Yes RN Verifying Infant: BL ROULUND, RN/ C ORNELAS, RN WEIGHT/LENGTH BABY A Birthweight (gm): 3117 Weight (lb): 6 Infant Weight (oz): 14 Infant Length (in): 19.75 Length (cm): 50.17 CORD INFORMATION BABY A No. Cord Vessels: 3 Nuchal Cord : Around Neck x1, Loose Cord Blood Taken: Yes-For Storage (Mom's Blood type +) Infant Suction: None ASSESSMENT BABY A Complications: None Physical Findings at Delivery: Within Normal Limits Infant Respirations: Appears Normal Skin to Skin: Yes Skin to Skin Time (min): 60 [employer] Consultant/ALS Called : No Transferred To: Remains with Mother BABY B INFORMATION : N/A SIGNATURES Signature: with User ID: [email or web address]
[2019-01-11] MEDS: IBUPROFEN 800 MG TABLET PO SCH (22:34)
[2019-01-11] MEDS: FAMOTIDINE 20 MG TABLET PO SCH (22:35)
[2019-01-12] MEDS: ACETAMINOPHEN WITH CODEINE #3 TABLET PO PRN ×3 (03:05→18:14)
[2019-01-12] MEDS: IBUPROFEN 800 MG TABLET PO SCH ×3 (05:45→21:28)
[2019-01-12 07:17] LABS: HEMATOCRIT 28.7 % (36.0-47.0); HEMOGLOBIN 9.8 g/dL (12.0-15.5); MEAN CORPUSCULAR HEMOGLOBIN 28.3 pg (27.0-33.4); MEAN CORPUSCULAR HGB CONC 34.2 g/dL (32.0-36.0); MEAN CORPUSCULAR VOLUME 83 fl (80-97); PLATELET COUNT 194 10^3/uL (150-450); RED BLOOD COUNT 3.46 10^6/uL (3.72-5.28); RED CELL DISTRIBUTION WIDTH 16.6 % (11.5-14.0); WHITE BLOOD COUNT 9.1 10^3/uL (4.0-10.5)
[2019-01-12] MEDS: PRENATAL VITAMIN W DHA CAPSULE PO SCH (09:43)
[2019-01-12] MEDS: DOCUSATE SODIUM 100 MG CAPSULE PO SCH ×2 (09:43→18:12)
[2019-01-12] MEDS: SENNOSIDES/DOCUSATE 8.6-50 MG 1 EACH TABLET PO SCH (09:43)
[2019-01-12] MEDS: FERROUS SULFATE 325 MG TABLET PO SCH ×2 (09:43→18:12)
[2019-01-12] MEDS: FAMOTIDINE 20 MG TABLET PO SCH ×2 (10:19→21:31)
--- NOTE | 2019-01-12 11:04 | PDOC PROGRESS REPORT ---
Subjective-OB Progress Note for:: 01/12/19 Subjective: 28yo G2 now P2 s/p ppd1. Pt. ambulating, and voiding without difficulty. Denies any concerns today. Physical Exam (OB) Vital Signs: Temp Pulse Resp BP Pulse Ox 97.8 F 74 14 116/76 100 01/12/19 08:56 01/12/19 08:56 01/12/19 08:56 01/12/19 08:56 01/12/19 08:56 Intake & Output 01/11/19 01/12/19 01/13/19 06:59 06:59 06:59 Intake Total 225 Balance 225 Weight 61 kg - General General Appearance: Appears well In distress: None - PIH/Pre-Eclampsia Headache: Absent Epigastric Pain: No Visual Changes: No - Episiotomy/Laceration Site Condition: Well Approximated - Lochia Lochia Amount: Small 10-25 ml Lochia Color: Rubra/Red - Abdomen Description: Soft, Round Hernia Present: No Fundal Description: Firm, Midline Fundal Height: u/u - u/2 - Respiratory Respiratory Status: No respiratory distress Chest Status: Nontender - Extremities Upper extremity: Normal inspection Lower extremities: Normal inspection - Neurological Cognition: Normal Orientation: AAOx4 - Psychological Associated symptoms: Normal affect, Normal mood Objective-Diagnostic Laboratory: 01/12/19 06:36 01/11/19 09:05 01/12/19 06:36 WBC 9.1 RBC 3.46 L Hgb 9.8 L Hct 28.7 L MCV 83 MCH 28.3 MCHC 34.2 RDW 16.6 H Plt Count 194 Assessment and Plan(PN) - Assessment and Plan (1) Acute blood loss anemia Is this a current diagnosis for this admission?: Yes Plan: Increase dietary iron and FeSO4 BID (3) Qualifiers: Weeks of gestation: 38 weeks Qualified Code(s): Z3A.38 - 38 weeks gestation of Is this a current diagnosis for this admission?: Yes Plan: delivered (4) Cholelithiasis Qualifiers: Cholecystitis acuity: unspecified acuity Is this a current diagnosis for this admission?: Yes Plan: follow up as instructed by delivery provider - Time Spent with Patient Time with patient: Less than 15 minutes Medications reviewed and adjusted accordingly: Yes - Disposition Anticipated Discharge: Home Within: within 24 hours
[2019-01-13] MEDS: ACETAMINOPHEN WITH CODEINE #3 TABLET PO PRN (00:27)
[2019-01-13] MEDS: IBUPROFEN 800 MG TABLET PO SCH (05:18)
[2019-01-13 07:55] VITALS: BP 112/75
--- NOTE | 2019-01-13 09:30 | PDOC PROGRESS REPORT ---
Subjective-OB Progress Note for:: 01/13/19 Subjective: Ready to go home. Physical Exam (OB) Vital Signs: Temp Pulse Resp BP Pulse Ox 98.4 F 68 16 112/75 97 01/13/19 07:30 01/13/19 07:30 01/13/19 07:30 01/13/19 07:30 01/13/19 07:30 Intake & Output 01/12/19 01/13/19 01/14/19 06:59 06:59 06:59 Intake Total 600 Balance 600 - PIH/Pre-Eclampsia DTR's: 2 + Clonus: Negative Headache: Absent Epigastric Pain: No Visual Changes: No - Lochia Lochia Amount: Small 10-25 ml Lochia Color: Rubra/Red - Abdomen Description: Soft, Round Hernia Present: No Bowel Sounds: Normoactive Flatus Presence: Present Stool: No Fundal Description: Firm Fundal Height: u/u - u/2 Objective-Diagnostic Laboratory: 01/12/19 06:36 01/11/19 09:05 Assessment and Plan(PN) - Time Spent with Patient Medications reviewed and adjusted accordingly: Yes - Disposition Anticipated Discharge: Home
--- NOTE | 2019-01-13 09:35 | PDOC DISCHARGE SUMMARY ---
Final Diagnosis Discharge Date: 01/13/19 - Final Diagnosis (1) Acute blood loss anemia Is this a current diagnosis for this admission?: Yes (2) Vaginal delivery Is this a current diagnosis for this admission?: Yes Discharge Data - Discharge Medication Prescriptions: Ferrous Sulfate [Feosol 325 mg Tablet] 325 mg PO BID #60 tablet Home Medications: Prenat 115/Iron Fum/Folic/Dss [ 19 Tablet] 1 each PO DAILY 09/22/18 Ferrous Sulfate [Feosol 325 mg Tablet] 325 mg PO BID #60 tablet 01/13/19 Gestational Age: 38.5 wks Reason(s) for Admission: Onset of Labor Procedures: Ultrasound Intrapartum Procedure(s): Spontaneous Vaginal Delivery - Data Baby 1 Male at 1 minute: 8 at 5 minutes: 9 Weight: 3.118 kg Home with Mother: Yes Complications: No - Diagnosis Test Laboratory: Temp Pulse Resp BP Pulse Ox 98.4 F 68 16 112/75 97 01/13/19 07:30 01/13/19 07:30 01/13/19 07:30 01/13/19 07:30 01/13/19 07:30 01/10/19 01/11/19 01/12/19 23:23 03:22 06:36 RBC 4.10 3.46 L Hgb 11.5 L 9.8 L Hct 34.0 L 28.7 L Urine Opiates Screen NEGATIVE - Discharge information/Instructions Discharge Activity: Activity As Tolerated, Balance Activity w/Rest, Pelvic Rest, Slowly Increase Activity, No tub bath Discharge Diet: Regular Disposition: HOME, SELF-CARE Follow up with: [facility] in: 4, Weeks
[2019-01-13] MEDS: DOCUSATE SODIUM 100 MG CAPSULE PO SCH (09:38)
[2019-01-13] MEDS: FERROUS SULFATE 325 MG TABLET PO SCH (09:38)
[2019-01-13] MEDS: SENNOSIDES/DOCUSATE 8.6-50 MG 1 EACH TABLET PO SCH (09:38)
[2019-01-13] MEDS: PRENATAL VITAMIN W DHA CAPSULE PO SCH (09:38)
== END 2019-01-13 13:02 | disposition home or self-care (01) | DRG 806 ==
LOC: LC 23:08 → OBSVTOIN 01-11 02:45 → LR 01-11 02:45 → 2S 01-11 21:17
PROVIDERS: ADMIT Obstetrics & Gynecology; ATTEND Student in an Organized Health Care Education/Training Program
PROC: 10E0XZZ Delivery of Products of Conception, External Approach (ICD-10-PCS; principal; 2019-01-11)
PROC: 4A1HXCZ Monitoring of Products of Conception, Cardiac Rate, External Approach (ICD-10-PCS; 2019-01-11)
PROC: 3E0234Z Introduction of Serum, Toxoid and Vaccine into Muscle, Percutaneous Approach (ICD-10-PCS; 2019-01-13)
DX: O99.62 Diseases of the digestive system complicating childbirth (principal); D62 Acute posthemorrhagic anemia; Z37.0 Single live birth; K80.20 Calculus of gallbladder without cholecystitis without obstruction; Z3A.38 38 weeks gestation of pregnancy; O69.81X0 Labor and delivery complicated by cord around neck, without compression, not applicable or unspecified; O99.02 Anemia complicating childbirth; Z23 Encounter for immunization
CPT/HCPCS: 36415; 80053; 80307; 81005; 82150; 83690; 85025; 85027; 86592; 86850; 86900; 86901; 90707; J2300; J2550; J2590; J3010; J3490

== ENCOUNTER 2019-06-10 07:07 | Emergency (ER) | payer MEDICAID ==
[2019-06-10 07:14] VITALS: BP 110/75
[2019-06-10] MEDS ORDERED: METHYLPREDNISOLONE INJ 125 MG/2 ML SDV IM ONE (07:35)
[2019-06-10] MEDS ORDERED: FAMOTIDINE 20 MG TABLET PO ONE (07:36)
[2019-06-10] MEDS ORDERED: CETIRIZINE 10 MG TABLET PO ONE (07:36)
--- NOTE | 2019-06-10 07:39 | ER Document Report ---
HPI - HPI Time Seen by Provider: 06/10/19 07:26 Pain Level: Denies Context: Patient is a 28-year-old female that comes to the emergency department for chief complaint of hives. She states she broke out into them yesterday, they are on her abdomen, legs, and arms. She denies difficulty swallowing or breathing, swelling of the tongue, throat, face, vomiting, or any other symptoms. She has never had this before, she is unsure of the cause. She takes no daily medica tions. She is breast-feeding. - REPRODUCTIVE Reproductive: DENIES: : Past Medical History - General Information source: Patient - Social History Smoking Status: Never Smoker Frequency of alcohol use: None Drug Abuse: None Lives with: Family Family History: Reviewed & Not Pertinent - Past Medical History Cardiac Medical History: Denies: Hx Congestive Heart Failure, Hx Coronary Artery Disease, Hx Heart Attack, Hx Hypertension Pulmonary Medical History: Denies: Hx Asthma, Hx Bronchitis, Hx COPD, Hx Pneumonia Neurological Medical History: Denies: Hx Cerebrovascular Accident, Hx Seizures Renal/ Medical History: Denies: Hx Peritoneal Dialysis GI Medical History: Denies: Hx Gastroesophageal Reflux Disease, Hx Ulcer Musculoskeletal Medical History: Denies Hx Arthritis Skin Medical History: Reports Hx Cellulitis - Mastitis Psychiatric Medical History: Denies: Hx Bipolar Disorder, Hx Depression, Hx Schizophrenia Surgical Hx: Negative - Immunizations Immunizations up to date: Yes Hx Diphtheria, Pertussis, Tetanus Vaccination: Yes Vertical Provider Document - CONSTITUTIONAL General Appearance: WD/WN, No Apparent Distress - INFECTION CONTROL TRAVEL OUTSIDE OF THE [place] IN LAST 30 DAYS: No - HEENT HEENT: Atraumatic, Normal ENT Exam - Patent airway, normal tongue, normal oropharyngeal exam, normal lips, Normocephalic - NECK Neck: Normal Inspection - RESPIRATORY Respiratory: Breath Sounds Normal, No Respiratory Distress - CARDIOVASCULAR Cardiovascular: Regular Rate, Regular Rhythm - GI/ABDOMEN Gastrointestinal: Abdomen Soft, Abdomen Non-Tender - BACK Back: Normal Inspection - MUSCULOSKELETAL/EXTREMETIES Musculoskeletal/Extremeties: MAEW, FROM, Non-Tender - NEURO Level of Consciousness: Awake, Alert, Appropriate Motor/Sensory: No Motor Deficit, No Sensory Deficit - DERM Integumentary: Warm, Dry, Rash - Scattered urticaria over the arms, legs, and over the lower abdomen. Otherwise unremarkable skin exam Course - Re-evaluation Re-evalutation: Patient has scattered urticaria without evidence of anaphylaxis. She will be treated with steroids, antihistamines. Patient states she has a ton of extra milk refrigerated that she can feed her child with and she will not have any risk of breast-feeding the child on these medications. I discussed expectations, follow-up, and return precautions at length. Patient states satisfaction and agreement with plan. Stable at time of discharge. - Vital Signs Vital signs: Temp Pulse Resp BP Pulse Ox 98.1 F 73 16 110/75 98 06/10/19 07:12 06/10/19 07:12 06/10/19 07:12 06/10/19 07:12 06/10/19 07:12 Discharge - Discharge Clinical Impression: Hives Condition: Stable Disposition: HOME, SELF-CARE Additional Instructions: Your evaluation shows hives. The exact cause of this is uncertain at this time unfortunately. I recommend the prednisone as prescribed, take your Claritin and the Pepcid as well for the next 5 days. I recommend using your alternative source of milk for the next 5 days if possible. Follow-up with primary care closely for additional evaluation and management. Return immediately if you worsen including swelling of the tongue/face/throat, difficulty breathing, vomiting, or any other concerning or worsening symptoms. Prescriptions: Famotidine [Pepcid 20 mg Tablet] 20 mg PO BID #12 tablet Prednisone [Deltasone 20 mg Tablet] 2 tab PO DAILY 5 Days #10 tablet
== END 2019-06-10 08:08 | disposition home or self-care (01) ==
LOC: ER 07:07
DX: L50.9 Urticaria, unspecified (principal)
CPT/HCPCS: 99282; 96372; J3490 ×2; J2930